=== PATIENT | female | born 1940 | race Caucasian/White ===

== ENCOUNTER → 2016-09-07 | Outpatient (CLI) | payer BC ==
[~2016-09-07] MED LIST: APIX1TAB3 PO; ASCO100061 PO; CETI10TA10 PO; CHOL1000 PO; CHOL1CHW10 PO; CYAN100020 PO; GLUCTAB7 PO; MELA1TAB5 PO; MELA3TAB12 PO; MELA3TAB7 PO; PSYL55.43 PO; TPRSR/100 PO; TZCSR120 PO; WARF2.5T8 PO; ZNT/150 PO; ZNTT/150 PO
--- NOTE | 2016-09-10 12:41 | MAMMOGRAPHY REPORT ---
UNILATERAL LEFT DIGITAL SCREENING MAMMOGRAM TOMOSYNTHESIS WITH CAD: 09/07/2016 TECHNIQUE: Breast tomosynthesis in addition to standard 2D mammography was performed. Current study was also evaluated with a Computer Aided Detection (CAD) system. Left CC and MLO 2-D and tomosynth esis images were obtained. COMPARISON: Comparison is made to exams dated: 09/06/2015 mammogram, 08/08/2012 mammogram, 08/02/2011 ma mmogram, 07/12/2010 mammogram, and 07/11/2009 mammogram - [facility]. BREAST COMPOSITION: The tissue of the left breast is heterogeneously dense, which may obscure small masses. FINDINGS: There is an oval circumscribed 6 mm mass seen within the left breast middle depth on the cc view along the posterior nipple line, not clearly evident on the MLO view. This was not clearly seen on prior exams, therefore, recommend spot compression tomosynthesis views and possible breast u ltrasound for further evaluation. The remainder of the left breast is stable compared to prior exams, without suspicious masses, calci fications, or areas of architectural distortion noted. Left breast postsurgical changes and scatter ed benign-appearing calcifications are not significantly changed. IMPRESSION: ACR BI-RADS CATEGORY 0: INCOMPLETE EVALUATION: NEED ADDITIONAL IMAGING EVALUATION Circumscribed left breast mass, for which additional imaging evaluation is recommended. The patient will be called to schedule an appointment. Approximately 10% of breast cancers are not detected with mammography. A negative mammographic repor t should not delay biopsy if a clinically suggestive mass is present. Lindsay Street M.D. ah/:09/08/2016 14:52:48 Biofuels Product Development Manager: Kristi CARROLL(Yessi)(M), [facility] letter sent: Addl Imaging 0 BI-RADS Code: ACR BI-RADS Category 0: Incomplete Evaluation: Need Additional Imaging Evaluation
== END | disposition home or self-care (01) ==
LOC: C.MAMM 11:26
PROVIDERS: ATTEND Family Medicine
DX: Z12.31 Encounter for screening mammogram for malignant neoplasm of breast (principal); N63 Unspecified lump in breast; Z90.11 Acquired absence of right breast and nipple

== ENCOUNTER → 2016-09-24 | Outpatient (CLI) | payer BC ==
--- NOTE | 2016-09-24 14:37 | MAMMOGRAPHY REPORT ---
UNILATERAL LEFT DIGITAL DIAGNOSTIC MAMMOGRAM TOMOSYNTHESIS AND TARGETED LEFT ULTRASOUND: 09/24/2016 CLINICAL HISTORY: 76-year-old woman with a personal history of right breast cancer status post maste ctomy, call back from screening mammography for a newly visualized 6.5 mm oval mass in the anterior left breast, best seen on the CC view. 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 TECHNIQUE: Spot compression left CC and MLO tomosynthesis images and reconstructed C-view were obta ined. COMPARISON: Comparison is made to exams dated: 09/07/2016 mammogram, 09/06/2015 mammogram, 07/31/2012 ma mmogram, 08/13/2012 ultrasound biopsy, 08/08/2012 mammogram - [facility], and 2007. BREAST COMPOSITION: The tissue of the left breast is heterogeneously dense, which may obscure small masses. FINDINGS: The additional spot compression tomosynthesis images demonstrate persistence of a 6.5 mm oval circumscribed mass in the 12:00 anterior left breast. No associated architectural distortion o r clustered microcalcification. Further evaluation with ultrasound was performed. There are scatte red benign-appearing coarse calcifications, stable microcalcification and vascular calcification thr oughout the visualized left breast. Real-time high resolution ultrasound was performed in the 11:00 through 2:00 axes of the left breast . In the 11:00 axis, 2 cm from the nipple, there is a lobulated anechoic simple cyst measuring 5.6 x 3.9 x 5.4 mm. This is thought to correlate with the circumscribed mammographic mass and is benign . However, incidentally seen in the 12:00 left breast, 1 cm from the nipple is a slightly hypoechoi c microlobulated solid appearing mass measuring 3.8 x 3.8 x 2.6 mm. This is indeterminate. Another lobulated hypoechoic solid-appearing mass is identified in the 2:00 left breast, 3 cm from the nipp le, measuring 4.1 x 3.3 x 3.6 mm. Although these masses in the 12:00 and 2:00 left breast are incid entally seen they could represent papillomas. Definitive characterization with tissue sampling is n eeded, particularly given the personal history of right breast cancer. IMPRESSION: ACR BI-RADS CATEGORY 4B: INTERMEDIATE SUSPICION FOR MALIGNANCY, TARGETED ULTRASOUND ACR BI-RADS CATEGORY 4B: INTERMEDIATE SUSPICION FOR MALIGNANCY 1. The circumscribed 6 mm oval mass in the 12:00 left breast correlates with a benign anechoic simp le cyst on ultrasound. 2. However, 2 other solid-appearing subcentimeter masses were incidentally seen in the left 12:00 and 2:00 axis on ultrasound that are indeterminate. Definitive characterizat ion with ultrasound guided core needle biopsy is recommended. These results and recommendations were discussed with the patient at the time of the exam. She is o n anticoagulation given her cardiac history and I recommended she remain on anticoagulation given th e low risk of bleeding during this procedure. The patient tentatively scheduled the biopsy prior to leaving our department. Approximately 10% of breast cancers are not detected with mammography. A negative mammographic repor t should not delay biopsy if a clinically suggestive mass is present. Barbara Bonilla M.D. ay/:09/24/2016 12:34:56 Lead Atg Developer: Kristi Constantino RT(R)(M), [facility] letter sent: Abnormal 4/5 BI-RADS Code: ACR BI-RADS Category 4B: Intermediate Suspicion For Malignancy Ultrasound BI-RADS: AC R BI-RADS Category 4B: Intermediate Suspicion For Malignancy
== END | disposition home or self-care (01) ==
LOC: C.MAMM 09:57
PROVIDERS: ATTEND Family Medicine
DX: N63 Unspecified lump in breast (principal); N60.02 Solitary cyst of left breast

== ENCOUNTER → 2016-10-24 | Outpatient (CLI) | payer BC ==
--- NOTE | 2016-10-24 14:36 | Discharge Instructions ---
Discharge Instructions Procedure Procedure Date: Oct 24, 2016. Reason for visit: Left 2 Masses. Discharge Discharge Date: Oct 24, 2016. Discharge Diagnosis: post left breast ultrasound guided core biopsy x 2 Medications Restart Stopped Medication(s): Continue current anticoagulation regimen Instructions Activity Recommendations: Additional Limitations (see below) Return to School/Work: no limitations Recommended Home Diet: No Limitations Provider Instructions: ACTIVITY RECOMMENDATIONS: * No lifting, pushing, pulling or exercising the affected side for three days. RETURN TO SCHOOL/WORK: * You may return to work/school after the procedure, but do not perform any strenuous activities for 24 to 48 hours. MEDICATIONS: * Tylenol (two 325 mg) every four to six hours if needed for mild pain (if not allergic to Tylenol). DIET: * Resume previous diet. SPECIAL CARE INSTRUCTIONS: * Keep biopsy site dry for 24 hours. May shower after 24 hours, but do not soak (bathe) incision. * May remove Tegaderm (plastic patch) tomorrow AFTER showering. * Leave the steri-strips on for one week. Allow the steri-strips to fall off by themselves. If not off after one week, you may remove them. You may place a Bandaid crosswise over the strips, if desired. * Apply ice 10 minutes on and 10 minutes off as needed. * Wear a bra at bedtime to sleep more comfortably for 2-3 days. * Your referring physician should have the results after approximately 5 to 7 business days. * Call for unusual bleeding, fever, drainage, etc or if you have any questions call [phone] during normal business hours or after hours call Dr Bonilla, . FOLLOW UP VISIT: Follow-up with Referring Physician as scheduled. Allergies Coded Allergies: Cephalexin (Verified Allergy, Severe, DIF BREATHING, 05/05/15) Ciprofloxacin (Verified Allergy, Unknown, UNKNOWN, 05/05/15) Lactose Intolerance (Verified Allergy, Unknown, unknown, 05/05/15) Heparin (Verified Adverse Reaction, Intermediate, Decreased WBC count, 05/05/15) CI Pigment Blue 63 (Verified Adverse Reaction, Unknown, TACHYCARDIA, ) Dextromethorphan (Unverified Adverse Reaction, Unknown, GI SYMPTOMS, 06/13) unknown Duloxetine (Verified Adverse Reaction, Unknown, TACHYCARDIA, 05/05/15) Famotidine (Unverified Adverse Reaction, Unknown, GI SYMPTOMS, 06/13/15) unknown Guaifenesin (Unverified Adverse Reaction, Unknown, GI SYMPTOMS, 06/13/15) unknown Pantoprazole (Unverified Adverse Reaction, Unknown, GI SYMPTOMS, 06/13/15) unknown Ranitidine (Unverified Adverse Reaction, Unknown, GI SYMPTOMS, 06/13/15) unknown Yellow Dye (Unverified Adverse Reaction, Unknown, GI SYMPTOMS, 06/13/15) unknown Jess Perez Recommendations: Call your doctor if: * Temperature above 101 degrees * Pain not relieved by pain medicine ordered * There is increased drainage or redness from any incision * You have any unanswered questions or concerns. Your Doctors Instructions noted above were prepared by provider Barbara Bonilla. Patient Signature Section: Patient Instructions Signature Page Fallon Negro Patient (or Guardian) Signature/Date: I have read and understand the instructions given to me by my caregivers. Caregiver/RN/Doctor Signature/Date: The above-named patient and/or guardian has received patient instructions on this date. + Original Patient Signature Page (only) stays with chart. Please make copy for patient.
--- NOTE | 2016-10-24 15:55 | MAMMOGRAPHY REPORT ---
THIS REPORT HAS BEEN AMENDED. MULTIPLE ULTRASOUND GUIDED BIOPSIES LEFT BREAST: 10/24/2016 CLINICAL HISTORY: Indeterminate solid appearing masses in the 12:00 and 2:00 axes of the left breast . Patient presents for ultrasound guided core needle biopsy 2. COMPARISON: Comparison is made to exams dated: 09/24/2016 mammogram, 09/07/2016 mammogram, 09/06/2015 m ammogram, 08/13/2012 ultrasound biopsy, 08/08/2012 ultrasound, and 08/02/2011 mammogram - [facility]. PATIENT CONSENT: The procedure, risks and benefits were discussed with the patient and informed writ ten consent was obtained. Specific risks to this procedure include: bleeding, infection, puncture of adjacent structure, nontarget biopsy, sampling error, metal allergy and medication reaction. PROCEDURE DESCRIPTION: A time out was performed and the left breast was agreed as the site of both b iopsies. The skin was prepped and draped in the usual sterile fashion. First the solid appearing m ass in the 2:00 left breast was identified and targeted for biopsy. Subcutaneous and intraparenchyma l 1% buffered lidocaine without epinephrine was administered as local anesthesia. A skin incision wa s made. Through the incision, 3 samples were taken with a 14 gauge Achieve biopsy device. A ribbon shaped metallic marker was placed at the biopsy site. Hemostasis was achieved after manual compressi on. The patient tolerated the procedure well and there was no immediate complication. Then the solid-appearing, possible intraductal mass in the 12:00 left breast was identified and targ eted for biopsy. Additional 1% buffered lidocaine without epinephrine was administered as local ane sthesia. A second skin incision was made. Through the incision, 3 samples were taken with a 14-gau Valmarc achieve biopsy device. A wing-shaped metallic biopsy marker was placed at this site. Hemostasis was achieved after manual compression. The patient tolerated the procedure well and there was no i mmediate application. All the samples were sent to the pathology department in appropriately labeled containers. Postprocedure left CC and ML 2-D digital and tomosynthesis images were obtained. There are 2 new me tallic BX markers and no significant hematoma in the upper outer quadrant of the left breast, at the site of the biopsied hypoechoic solid-appearing mass is seen on ultrasound. Because these masses w ere noted incidentally found on ultrasound, and differ in location from the original mass in which t he patient was called back from screening mammography, pending benign pathology results, a short int erval follow-up diagnostic left mammogram including tomosynthesis images is recommended to ensure st ability in 6 months. IMPRESSION: ULTRASOUND GUIDED BIOPSY Status post ultrasound-guided core needle biopsy 2 in the 12:00 and 2:00 axes of the left breast. Pending benign pathology results, follow-up diagnostic left mammograms and repeat targeted ultrasoun d is recommended to ensure stability in 6 months. The patient will receive notification of the biopsy results from her referring physician. Barbara Bonilla M.D. ay/:10/24/2016 14:50:17 Parachute Inspector: Katrin VELOZ)(Bran), [facility] AMENDMENT: 11/01/2016 Barbara Bonilla M.D. Pathology results from the ultrasound-guided core needle biopsy of an indeterminate solid mass in th e 2:00 left breast yielded a papillary neoplasm. Cytologic atypia is not seen. Ultrasound guided core biopsy of an indeterminate solid mass in the 12:00 left breast yielded fibroadenomatoid change, fibrocystic change and adenosis. No tumor seen. The pathology results in both the 2:00 and 12:00 axes of the left breast are concordant with the imaging appearance. It is controversial as to wheth er all papillomas without atypia need surgical excision or can be closely followed with imaging. Th erefore, consider surgical consultation for possible excision versus short interval follow-up. A short interval follow-up has already been recommended given that neither of the metallic biopsy ma rkers correlate with the partially circumscribed and obscured mass originally seen on the 09/07/2016 mammogram.
--- NOTE | 2016-10-25 13:33 | MAMMOGRAPHY REPORT ---
MULTIPLE ULTRASOUND GUIDED BIOPSIES LEFT BREAST: 10/24/2016 CLINICAL HISTORY: Indeterminate solid appearing masses in the 12:00 and 2:00 axes of the left breast . Patient presented for ultrasound-guided core needle biopsy 2. COMPARISON: Comparison is made to exams dated: 09/24/2016 ultrasound, 09/24/2016 mammogram, 09/07/2016 mammogram, and 09/06/2015 mammogram - [facility]. PATIENT CONSENT: The procedure, risks and benefits were discussed with the patient and informed writ ten consent was obtained. Specific risks to this procedure include: bleeding, infection, puncture of adjacent structure, nontarget biopsy, sampling error and medication reaction. PROCEDURE DESCRIPTION: A time out was performed and the left breast was agreed as the site of biopsy . The skin was prepped and draped in the usual sterile fashion. First the solid appearing mass in t he 2:00 left breast was identified and targeted for biopsy. Subcutaneous and intraparenchymal 1% bu ffered lidocaine was administered as local anesthesia. A skin incision was made. Through the incisi on, 3 samples were taken with a 14 gauge Achieve biopsy device. A ribbon shaped metallic marker was placed at the biopsy site. Hemostasis was achieved after manual compression. The patient tolerated t he procedure well and there was no immediate complication. Then the isoechoic solid-appearing mass in the 12:00 left breast was identified and targeted for bio psy. Additional 1% buffered lidocaine without epinephrine was administered as local anesthesia. A s kin incision was made. Through the incision, 3 samples were taken with a 14 gauge Achieve biopsy de vice. A wing-shaped metallic marker was placed at the biopsy site. Hemostasis was achieved after man ual compression. The patient tolerated the procedure well and there was no immediate complication. All of the samples were sent to the pathology department in appropriately labeled containers. Postprocedure left CC and ML 2-D digital and tomosynthesis images were obtained. 2 new metallic bio psy markers are identified in the upper outer quadrant of the left breast. No significant post biop sy hematoma is seen. Although the biopsied masses were incidentally seen on ultrasound, pending amina ign pathology results would recommend follow-up diagnostic left mammograms and possible repeat ultra sound to ensure stability in 6 months. IMPRESSION: ULTRASOUND GUIDED BIOPSY Status post ultrasound guided core needle biopsy in the 12:00 and 2:00 axes of the left breast, with biopsy marker placed at each site. Pending benign pathology results, recommend follow-up diagnostic left mammograms including tomosynth esis images and possible repeat ultrasound to ensure stability in 6 months. The patient will receive notification of the biopsy results from her referring physician. Barbara Bonilla M.D. ay/:10/24/2016 17:38:04 Linux Vmware Administrator: Katrin VELOZ)(Bran), [facility]
--- NOTE | 2016-10-25 13:36 | MAMMOGRAPHY REPORT ---
UNILATERAL LEFT DIGITAL DIAGNOSTIC MAMMOGRAM TOMOSYNTHESIS: 10/24/2016 CLINICAL HISTORY: 76-year-old woman with a remote history of right breast cancer status post mastect sara presents for ultrasound-guided core biopsy of 2 indeterminate solid appearing masses in the left breast. Please refer to the report from left breast ultrasound guided core needle biopsy performed at the [facility] time for full detail. IMPRESSION: POST PROCEDURE IMAGING FOR MARKER PLACEMENT Please refer to the report from left breast ultrasound guided core needle biopsy performed at the [facility] time for full detail. Approximately 10% of breast cancers are not detected with mammography. A negative mammographic repor t should not delay biopsy if a clinically suggestive mass is present. Barbara Bonilla M.D. ay/:10/24/2016 17:34:07 Supervisor Rough End: Katrin VELOZ)(M), [facility] BI-RADS Code: Post Procedure Imaging For Marker Placement
== END | disposition home or self-care (01) ==
LOC: C.MAMM 13:33
PROVIDERS: ATTEND Family Medicine
DX: N63 Unspecified lump in breast (principal)

== ENCOUNTER → 2017-02-19 | Day surgery (SDC) | payer BC ==
[2017-02-05 08:35] VITALS: Ht 172.7 cm; Wt 64.5 kg
[~2017-02-19] VITALS: Ht 172.7 cm; Wt 64.5 kg
[~2017-02-19] MED LIST changes: +500ML BSS 0.3ML EPI 1:1000PF IRRIG ONE; +ACETAMINOPHEN 325 MG TAB PO PRN; +AMVISC PLUS 0.8ML SYRINGE INT OCU ONE; -ASCO100061 PO; +ATROPINE SULFATE 0.1 MG/ML 5ML SYR IV PRN; +BSS FLUSH ONE; -CHOL1CHW10 PO; -CYAN100020 PO; +EpHEDrine SULFATE INJ 50 MG/ML AMP IV PRN; +EpINEphrine INJ 1MG/ML AMP 1 MG/ML AMP ONE; +GATIFLOXACIN OP SOLN PER DROP CHARGE OPR SCH; +LACTATED RINGER'S 1000ML 500 ML IV SCH; +LIDOCAINE 3.5% OPH GEL PER APPLICATION CHARGE ONE; +LIDOCAINE HCL 1% MPF 2 ML VIAL ONE; -MELA1TAB5 PO; +MIDAZOLAM HCL 1 MG/ML 2ML VIAL ONE; +OCUCOAT 1 ML SOLN IO ONE; +ONDANSETRON INJ 2 MG/ML 2 ML VIAL IV PRN; +POVIDONE-IODINE OP SOLN 30 ML BTL ONE; +PROPARACAINE 0.5% OP SOLN PER DROP CHARGE OPR SCH; -PSYL55.43 PO; +TOBRAMYCIN/DEXAMETHASONE OPH OINT PER APPLN CHARGE ONE; -TPRSR/100 PO; -TZCSR120 PO; -WARF2.5T8 PO; -ZNTT/150 PO
[2017-02-19] MEDS: PHENYLEPHRINE HCL 2.5% OP SOLN PER DROP CHARGE OPR SCH ×2 (07:42→07:47)
[2017-02-19] MEDS: TROPICAMIDE 1% OP SOLN PER DROP CHARGE OPR SCH ×2 (07:42→07:47)
[2017-02-19] MEDS: KETOROLAC 0.5% OP SOLN PER DROP CHARGE OPR SCH ×2 (07:43→07:49)
[2017-02-19] MEDS: CYCLOPENTOLATE HCL 1% OP SOLN PER DROP CHARGE OPR SCH ×2 (07:43→07:48)
[2017-02-19] MEDS: GATIFLOXACIN OP SOLN PER DROP CHARGE OPR SCH ×3 (07:44→08:44)
--- NOTE | 2017-02-19 08:09 | History & Physical Bridge - SC ---
H&P Re-Evaluation Bridge Note: I have examined the patient, reviewed the History & Physical and in the interval since the performance of the History & Physical I have noted the following changes of clinical significance: No changes noted
--- NOTE | 2017-02-19 08:41 | Discharge Instructions-SurgCtr ---
Discharge Instructions Date of Service Feb 19, 2017. Visit Reason for Visit: Right Cataract Discharge Discharge Diagnosis / Problem: cataract Discharge Goals Goal(s): Improve function Activity Recommendations Activity Limitations: per Instructions/Follow-up section Anesthesia . Post Anesthesia Instructions: If you have had General Anesthesia or IV Sedation: * Do not drive today. * Resume driving when surgeon permits. * Do not make important decisions or sign legal documents today. * Call surgeon for: 1. Temperature elevations greater than 101 degrees F. 2. Uncontrollable pain. 3. Excessive bleeding. 4. Persistent nausea and vomiting. 5. Medication intolerance (nausea, vomiting or rash). * For nausea and vomiting use only clear liquids such as: tea, soda, bouillon until nausea subsides, then gradually increase diet as tolerated. * If you have any concerns or questions, call your surgeon's office. If physician is unavailable and it is an emergency, call 911 or go to the nearest emergency room. . Instructions / Follow-Up Instructions / Follow-Up ACTIVITY RECOMMENDATIONS: * No strenuous lifting, jogging or running for 4 days * No swimming or yard work for 1 week. * Limited bending is permitted, such as putting on shoes. RETURN TO SCHOOL/WORK: No work until seen by physician in office. MEDICATIONS: Resume previous medications unless instructed otherwise by your surgeon. This includes eye drops for glaucoma. Zymaxid/Gatifloxacin (trevino cap) - one drop every 2 hours until bedtime Nevanac/Ilevro/Prolensa/Ketorolac (palmer cap) - one drop every 4 hours until bedtime Prednisolone/Durezol (white/pink cap, SHAKE WELL) - one drop every 2 hours until bedtime Starting tomorrow - all 3 drops every 4 hours until seen in the office Optive drops - as needed for discomfort SPECIAL CARE INSTRUCTIONS: * Wear eyeshield when sleeping, for four nights. * You may wear your own glasses or sunglasses while awake. * You may read or watch TV * You may shower and wash your face, but be gentle around the eye and pat dry. * Blurry vision and mild irritation are normal. * Call office if pain is more severe or vision becomes dark at . FOLLOW UP VISIT: Follow-up with Dr Lozano tomorrow. Diet Recommendations Home Diet: resume previous diet Procedures Procedures Performed: Right Cataract Phacoemulsification With Intraocular Lens Implant Pending Studies Studies pending at discharge: no Medical Emergencies . Who to Call and When: Medical Emergencies: If at any time you feel your situation is an emergency, please call 911 immediately. . Non-Emergent Contact Non-Emergency issues call your: Bead Wire Insulator . . "Provider Documentation" section prepared by Emanuel Lozano. .
--- NOTE | 2017-02-19 08:42 | [facility] Operative Report ---
Operative Report Date of Service Feb 19, 2017. Operative Report 1. PREOPERATIVE DIAGNOSIS: Cataract of the right eye. 2. POSTOPERATIVE DIAGNOSIS: Same. 3. PROCEDURE: Phacoemulsification with intraocular lens implantation of the right eye. SURGEON: Dr. Emanuel Lozano. ANESTHESIA: Topical Lidocaine gel, 1% Non- Preserved intracameral Lidocaine, and monitored intravenous sedation. INDICATIONS FOR THE PROCEDURE: The patient is a 77 - year-old female with a history of cataract of the right eye causing significant visual impairment. The details of the proposed procedure were explained to the patient who asked appropriate questions and following discussion of all risks, benefits and alternatives agreed to have the procedure done. 4. OPERATION AND FINDINGS: DESCRIPTION OF PROCEDURE: After informed consent was obtained, the patient was brought to the Operating Room at the [facility]. The patient was placed in a supine position and then the right eye was prepped and draped in the usual sterile fashion for intraocular surgery. A drop of topical Lidocaine gel was placed in the operative eye. A wire lid speculum was then placed in the fornices. A corneal paracentesis was then created temporally. The Non-Preserved Lidocaine was then instilled into the anterior chamber. The anterior chamber was then pressurized with viscoelastic. A 2.0 mm clear corneal incision was then created temporally. A cystotome was inserted into the anterior chamber and used to create a tear in the anterior lens capsule. This capsular tear was then used to create a small flap and the flap was dragged in a counterclockwise direction in order to create a continuous curvilinear capsulorrhexis. Hydrodissection was accomplished with balanced salt solution. Phacoemulsification of the lens nucleus was then performed in a standard [id number] technique. The phaco time was 22 seconds with an average power of 12 %. The remaining cortical material was removed using irrigation aspiration. The capsular bag was then filled with viscoelastic. A Bausch [employer] Lomb MI60L +14.5 diopters lens was then loaded into the injector and injected into the capsular bag. The remaining viscoelastic was removed with the irrigation aspiration handpiece. The wound was hydrated and then checked and found to be watertight. The intraocular pressure was checked and found to be adequate. The wire lid speculum was removed and the patient's face was cleaned and dried. TobraDex ointment was placed in the inferior fornix. The patient was discharged to the Recovery Room having tolerated the procedure well. There were no complications. The patient will be seen tomorrow in the office for follow-up. I attest to the content of the Intraoperative Record and any orders documented therein. Any exceptions are noted below.
[2017-02-19 08:45] VITALS: TEMP 36.6
[2017-02-19 09:11] VITALS: BP 165/89; PULSE 65; O2SAT 99
--- NOTE | 2017-02-19 09:11 | Anesthesia Progress Nt - [facility] ---
Anesthesia Post Op Note Date & Time Feb 19, 2017 at 09:11 Vital Signs Pain Intensity: 0 Vital Signs Past 12 Hours Date Time Temp Pulse Resp B/P (MAP) Pulse Ox O2 Delivery O2 Flow Rate FiO2 02/19/17 08:45 36.6 65 18 150/80 (103) 100 Room Air 02/19/17 07:24 36.6 66 16 166/84 (111) 98 Room Air Notes Mental Status: alert / awake / arousable, participated in evaluation Pt Amnestic to Procedure: Yes Nausea / Vomiting: adequately controlled Pain: adequately controlled Airway Patency, RR, SpO2: stable & adequate BP & HR: stable & adequate Hydration State: stable & adequate Anesthetic Complications: no major complications apparent
== END | disposition home or self-care (01) ==
LOC: X.SURG 07:07
PROVIDERS: ATTEND Ophthalmology
DX: H26.9 Unspecified cataract (principal); I48.91 Unspecified atrial fibrillation; Z95.0 Presence of cardiac pacemaker; Z82.49 Family history of ischemic heart disease and other diseases of the circulatory system; Z80.3 Family history of malignant neoplasm of breast; Z80.42 Family history of malignant neoplasm of prostate; Z80.0 Family history of malignant neoplasm of digestive organs; Z79.01 Long term (current) use of anticoagulants; Z90.710 Acquired absence of both cervix and uterus; Z90.89 Acquired absence of other organs; Z90.49 Acquired absence of other specified parts of digestive tract; I10 Essential (primary) hypertension; M19.90 Unspecified osteoarthritis, unspecified site; Z85.3 Personal history of malignant neoplasm of breast

== ENCOUNTER → 2017-05-21 | Day surgery (SDC) | payer BC ==
[2017-04-26 09:51] VITALS: Ht 172.7 cm; Wt 64.5 kg
[~2017-05-21] VITALS: Ht 172.7 cm; Wt 64.5 kg
[~2017-05-21] MED LIST changes: -500ML BSS 0.3ML EPI 1:1000PF IRRIG ONE; -ACETAMINOPHEN 325 MG TAB PO PRN; -AMVISC PLUS 0.8ML SYRINGE INT OCU ONE; -ATROPINE SULFATE 0.1 MG/ML 5ML SYR IV PRN; -BSS FLUSH ONE; -EpHEDrine SULFATE INJ 50 MG/ML AMP IV PRN; -EpINEphrine INJ 1MG/ML AMP 1 MG/ML AMP ONE; -GATIFLOXACIN OP SOLN PER DROP CHARGE OPR SCH; -LACTATED RINGER'S 1000ML 500 ML IV SCH; -LIDOCAINE 3.5% OPH GEL PER APPLICATION CHARGE ONE; -LIDOCAINE HCL 1% MPF 2 ML VIAL ONE; +MELA1TAB5 PO; -MIDAZOLAM HCL 1 MG/ML 2ML VIAL ONE; -OCUCOAT 1 ML SOLN IO ONE; -ONDANSETRON INJ 2 MG/ML 2 ML VIAL IV PRN; -POVIDONE-IODINE OP SOLN 30 ML BTL ONE; -PROPARACAINE 0.5% OP SOLN PER DROP CHARGE OPR SCH; -TOBRAMYCIN/DEXAMETHASONE OPH OINT PER APPLN CHARGE ONE
== END | disposition home or self-care (01) ==
LOC: EDSTATUS 07:00 → C.PAT 16:00
PROVIDERS: ATTEND Surgery
DX: D24.9 Benign neoplasm of unspecified breast (principal); Z53.9 Procedure and treatment not carried out, unspecified reason

== ENCOUNTER → 2017-10-29 | Day surgery (SDC) | payer BC ==
[2017-10-14 11:52] VITALS: Ht 172.7 cm; Wt 62.7 kg
[~2017-10-29] VITALS: Ht 172.7 cm; Wt 62.7 kg
[~2017-10-29] MED LIST changes: +ATROPINE SULFATE 0.1 MG/ML 5ML SYR IV PRN; +CLINDAMYCIN PHOS 150 MG/ML 2 ML VIAL IV SCH; +EpHEDrine SULFATE INJ 50 MG/ML AMP IV PRN; +FENTANYL CITRATE INJ 50 MCG/1 ML 2 ML VIAL IV PRN; +FENTANYL CITRATE INJ 50 MCG/1 ML 2 ML VIAL ONE; +FLUMAZENIL 0.1 MG/1 ML 10 ML VIAL IV PRN; +HYDR-5688 PO; +HYDROCODONE/ACETAMIN 5/325MG TAB PO PRN; +HYDROmorphone INJ 2 MG/ML SYR/VIAL IV PRN; +LABETALOL HCL IV 5 MG/ML 20ML IV PRN; +LACTATED RINGER'S 1000ML 1,000 ML IV SCH; +LIDOCAINE HCL 1% 20 ML VIAL ONE; +LIDOCAINE HCL 2% 2 ML VIAL (20MG/ML) ONE; +MELA1TAB3 PO; -MELA1TAB5 PO; -MELA3TAB12 PO; -MELA3TAB7 PO; +MEPERIDINE HCL 25 MG/ML CARP IV PRN; +MIDAZOLAM HCL 1 MG/ML 2ML VIAL ONE; +NALOXONE HCL 0.4 MG/1 ML VIAL/CARP IV PRN; +ONDANSETRON INJ 2 MG/ML 2 ML VIAL IV PRN; +PHENYLEPHRINE 100MCG/ML 5ML SYR IV PRN; +PROPOFOL IV EMULSION 10 MG/ML 20 ML VIAL IV ONE; +SODIUM CHLORIDE 0.9% 1000ML 1,000 ML IV SCH; -ZNT/150 PO
--- NOTE | 2017-10-29 11:57 | Discharge Instructions-SurgCtr ---
Discharge Instructions Date of Service Oct 29, 2017. Visit Reason for Visit: Left Breast Papilloma Discharge Discharge Diagnosis / Problem: papilloma Discharge Goals Goal(s): Decrease discomfort, Improve function, Improve disease control Medications Stopped Medications Name(s): Luke winslow 10-26-17 Activity Recommendations Activity Limitations: as noted below Lifting Limitations: gradually increase as tolerated Exercise/Sports Limitations: until after follow-up appointment May Resume Sexual Activity: when tolerated Shower/Bathe: keep incision dry (for 2 days then may shower 4/5) Anesthesia . Post Anesthesia Instructions: If you have had General Anesthesia or IV Sedation: * Do not drive today. * Resume driving when surgeon permits. * Do not make important decisions or sign legal documents today. * Call surgeon for: 1. Temperature elevations greater than 101 degrees F. 2. Uncontrollable pain. 3. Excessive bleeding. 4. Persistent nausea and vomiting. 5. Medication intolerance (nausea, vomiting or rash). * For nausea and vomiting use only clear liquids such as: tea, soda, bouillon until nausea subsides, then gradually increase diet as tolerated. * If you have any concerns or questions, call your surgeon's office. If physician is unavailable and it is an emergency, call 911 or go to the nearest emergency room. . Instructions / Follow-Up Instructions / Follow-Up SPECIAL CARE INSTRUCTIONS: * Cover incisions and change daily for comfort/drainage. * May use ibuprofen for pain as tolerated. * Expect some swelling and bruising. Call your doctor if: * Temperature above 101 degrees * Pain not relieved by pain medicine ordered * There is increased drainage or redness from any incision * You have any unanswered questions or concerns [phone]. FOLLOW UP VISIT: If not already scheduled, please call the office for a follow-up visit. for next week- some suture removal OFFICE PHONE NUMBER: Dr. Chapin Office Diet Recommendations Home Diet: resume previous diet Pending Studies Studies pending at discharge: no Medical Emergencies . Who to Call and When: Medical Emergencies: If at any time you feel your situation is an emergency, please call 911 immediately. . Non-Emergent Contact Non-Emergency issues call your: Primary Care Provider, Surgeon . . "Provider Documentation" section prepared by Blas Chapin. .
--- NOTE | 2017-10-29 13:06 | [facility] Operative Report ---
Operative Report Operative Date Oct 29, 2017. Pre-Operative Diagnosis Left Breast Papilloma Post-Operative Diagnosis same as pre op Procedure(s) Performed Left Breast Papilloma Excision With Needle Localization Surgeon Dr Chapin Damper Fitter Surgeon(s) none Estimated Blood Loss 20ml Findings clip Specimens A) Left Breast Tissue out at 1230 B) Left Inferior Tissue, Blue Dye is New Margin C) Left Superior Tissue, Blue Dye is New Margin Drains None Anesthesia Type MAC Disposition Recovery Room / PACU I attest to the content of the Intraoperative Record and any orders documented therein. Any exceptions are noted below.
[2017-10-29 13:12] VITALS: TEMP 36.9
--- NOTE | 2017-10-29 13:23 | Anesthesia Progress Nt - [facility] ---
Anesthesia Post Op Note Date & Time Oct 29, 2017 at 13:22 Vital Signs Pain Intensity: 0 Vital Signs Past 12 Hours Date Time Temp Pulse Resp B/P (MAP) Pulse Ox O2 Delivery O2 Flow Rate FiO2 10/29/17 13:12 36.9 65 16 156/85 (108) 99 Room Air 10/29/17 09:52 36.5 78 16 154/89 (110) 99 Room Air Notes Mental Status: alert / awake / arousable, participated in evaluation Pt Amnestic to Procedure: Yes Nausea / Vomiting: adequately controlled Pain: adequately controlled Airway Patency, RR, SpO2: stable & adequate BP & HR: stable & adequate Hydration State: stable & adequate Anesthetic Complications: no major complications apparent The patient's pacemaker was placed in VOO by the [employer] rep during the surgery. She was then reprogrammed by the rep in PACU to her normal settings.
[2017-10-29 14:04] VITALS: BP 147/77; PULSE 69; O2SAT 97
--- NOTE | 2017-10-29 14:31 | OPERATIVE REPORT ---
DATE OF OPERATION: 10/29/2017 NAME OF OPERATION: Needle localization, left breast biopsy. PREOPERATIVE DIAGNOSIS: Abnormal mammogram, left breast. POSTOPERATIVE DIAGNOSIS: Same. STAFF SURGEON: Dr. Chapin. ANESTHESIA: 1% plain lidocaine with sedation. DESCRIPTION OF PROCEDURE: The patient was brought in the operating room and placed on the operating table in supine position. After appropriate sedation and also reprogramming of her pacemaker, the left breast was prepped and draped around a needle and the skin and subcutaneous tissue were anesthetized using 1% plain lidocaine. Then, incision made medial to the needle carrying dissection down around the needle. It was somewhat difficult secondary to dense breast tissue and vascularity. Tissue was excised and sent to the breast center. There was some question of need for additional tissue more superficially. Therefore, additional tissue was taken and then this was inferior and superior tissue, which was marked with blue dye on the new margins. Deep tissue was reapproximated using 2-0 plain catgut suture then the skin reapproximated using 5-0 Prolene suture. Dressing applied and patient transferred to recovery room in stable condition. I attest to the content of the Intraoperative Record and any orders documented therein. Any exception s are noted below.
--- NOTE | 2017-10-30 07:55 | MAMMOGRAPHY REPORT ---
THIS REPORT HAS BEEN AMENDED. NEEDLE LOCALIZATION LEFT BREAST: 10/29/2017 CLINICAL HISTORY: 77-year-old woman with a personal history of right breast cancer status post mastec tereso presents for surgical excision of a biopsy-proven papillary neoplasm in the 2:00 left breast. COMPARISON: Comparison is made to exams dated: 10/29/2017 ultrasound, 10/29/2017 mammogram, 10/24/2016 ma mmogram, and 10/24/2016 ultrasound biopsy - [facility]. PATIENT CONSENT: The risks of the procedure were explained to the patient and informed consent was ob tained. The patient denied eating or drinking anything this morning that would preclude anesthesia. She also denied allergy to lidocaine. PROCEDURE DESCRIPTION: Current and prior mammograms, ultrasounds and ultrasound-guided core biopsy im ages were reviewed. The biopsy-proven papilloma is not well seen on ultrasound today therefore mammo gram guided needle localization will be performed. The ribbon-shaped biopsy marker clip is the inten ded target for localization. With the patient in the seated position, the left breast was placed in lateral-medial compression. 1% buffered Lidocaine without epinephrine was administered as local anest hesia. A 3cm Paredes II needle and wire combination was inserted into the breast. Optimal positioning was confirmed and the wire was locked in place, leaving both the needle and wire within the breast, as per surgeon's preference. The entire procedure including approach and needle length were discusse d with the operating surgeon prior to surgery. The patient tolerated the procedure well and there wa s no immediate complication. She was transferred to the surgery center operating room in satisfactor y condition. The specimen radiograph demonstrates the localizing needle and wire, vascular calcification, a small grouping of punctate microcalcifications and the ribbon-shaped biopsy marker clip. The ribbon clip i s located near the superficial aspect of the specimen and this was discussed with the operating surge on during the procedure. He opted to take additional superficial tissue. IMPRESSION: NEEDLE LOCALIZATION Status post preoperative needle and wire localization for a biopsy-proven papillary neoplasm in the 2 :00 left breast. The imaged specimen includes the intended abnormalities. Pending pathology results, recommend follow-up left diagnostic tomosynthesis mammograms and possible ultrasound as well as a breast MRI to ensure stability after surgery in 6 months and also to reevalua te a questionable subtle area of architectural distortion in the lateral breast that could simply rep resent prior postsurgical change. The patient will receive notification of the pathology results from her referring physician. Barbara Bonilla M.D. ay/:10/29/2017 12:49:17 Home Teaching Grades 9 Thru 12 Teacher: Kristi CARROLL (R)(Bran), [facility] AMENDMENT: 11/06/2017 Barbara Bonilla M.D. Pathology results from the image guided surgical excisional biopsy of a papilloma in the lateral left breast yielded a benign intraductal papilloma with fibrocystic changes. Small radial scar. Changes consistent with previous biopsy site. Examined margins free of neoplasm. Benign breast tissue. Ne gative for in situ and invasive carcinoma. The pathology results are concordant with the imaging ariel earance. Given the personal history of breast cancer, left breast surgeries and other possible areas of distortion in the left breast, would recommend a six-month follow-up mammogram and MRI to ensure stability.
--- NOTE | 2017-10-30 07:55 | MAMMOGRAPHY REPORT ---
SPECIMEN LEFT BREAST: 10/29/2017 CLINICAL HISTORY: Biopsy-proven papillary neoplasm in the 2:00 left breast. Patient presents for pre operative needle and wire localization prior to excisional biopsy. Please refer to the report from left breast needle localization with imaging performed at the same ti me for full detail. IMPRESSION: SPECIMEN Please refer to the report from left breast needle localization with imaging performed at the same ti me for full detail. Barbara Bonilla M.D. ay/:10/29/2017 11:54:50 Senior Architect: Kristi CARROLL(Yessi)(M), [facility]
--- NOTE | 2017-10-30 07:58 | MAMMOGRAPHY REPORT ---
UNILATERAL LEFT DIGITAL DIAGNOSTIC MAMMOGRAM TOMOSYNTHESIS WITH CAD AND TARGETED LEFT ULTRASOUND: 10/29 CLINICAL HISTORY: 77-year-old woman with a personal history of right breast cancer status post mastec tereso, who underwent 2 left breast biopsies on 10/24/2016. The mass in the 2:00 left breast yielded a papillary neoplasm and surgical excision was recommended. She presents at time of surgical excision but given that it has been greater than a year since her previous mammograms, diagnostic left mammogr aphy was performed prior to needle localization to exclude the possibility of any other new suspiciou s findings. TECHNIQUE: Left breast tomosynthesis in addition to standard 2D mammography was performed. Current st udy was also evaluated with a Computer Aided Detection (CAD) system. Spot compression tomosynthesis left CC and MLO views were also obtained. COMPARISON: Comparison is made to exams dated: 10/24/2016 mammogram, 09/24/2016 ultrasound, 09/24/2016 mammogram, 09/07/2016 mammogram, 09/06/2015 mammogram, and 07/31/2012 mammogram - [facility]. BREAST COMPOSITION: The tissue of the left breast is heterogeneously dense, which may obscure small masses. FINDINGS: There is a lobulated and circumscribed 5.4 mm mass in the 12:00 middle one third of the lef t breast. This was thought to correlate with a cyst identified on prior left breast ultrasound but r epeat evaluation with ultrasound was performed. No obvious associated architectural distortion or ca lcification. There are 2 stable metallic biopsy marker clips in the lateral left breast, denoting th e biopsy-proven fibroadenomatoid nodule and biopsy-proven papillary neoplasm, which is denoted by a r ibbon-shaped biopsy marker clip. No obvious new masses or asymmetries are seen near the biopsy marke r clips. There is a subtle questionable area of architectural distortion in the lateral, middle one third of the left breast on CC tomosynthesis slice 24/49, which is located near a skin surgical scar based on the linear scar marker. Nevertheless, further evaluation with ultrasound was performed. Th ere is also expected architectural distortion in the medial anterior left breast, at the site of prio r excision. Targeted ultrasound was performed to the left breast with particular attention to the superior aspect of the breast. In the 11:00 axis, 2 cm from the nipple, there is a lobulated anechoic cyst with pos terior acoustic enhancement, measuring 6.3 x 4.2 x 3.9 mm, correlating with the circumscribed mammogr aphic mass. This is benign. The previously biopsied masses in the 12:00 and 2:00 axes of the left b reast are not definitely seen. There is a hypoechoic lesion with possible associated biopsy marker c lip in the approximate 1:00 left breast, 1 cm from the nipple but it is unclear if this may correspon d with the previously biopsied mass labeled in the 2:00 axis. Therefore, mammogram guided needle loc alization will be performed. Additionally, there is a very subtle possible texture difference in the tissue at the 12:00 left breast, 2 cm from the nipple but no definite architectural distortion is ap preciated in real-time scanning. A six-month follow-up diagnostic tomosynthesis mammogram and repeat targeted ultrasound is recommended to ensure stability in 6 months, and to establish new baseline af ter surgical excision. IMPRESSION: ACR BI-RADS CATEGORY 4: SUSPICIOUS, TARGETED ULTRASOUND ACR BI-RADS CATEGORY 4: SUSPICIO US 1. A visible circumscribed 5.4 mm mass in the middle one third of the left breast along the posterio r nipple line on the cc view is thought to correspond with a benign cyst seen in the 11:00 left breas t, 2 cm from the nipple on ultrasound. 2. The previously biopsied masses in the 12:00 and 2:00 axes of the left breast are less conspicuous on the current ultrasound and therefore mammogram guided needle localization will be performed to en sure excision of the ribbon-shaped biopsy marker clip which denotes the biopsy-proven papillary neopl asm. 3. There is a questionable area of architectural distortion in the lateral, middle one third of the left breast on the CC tomosynthesis images, which likely represents postsurgical scarring, given nume yulia linear scar markers overlying the left breast from prior excisions. No definite suspicious sono graphic correlate is seen. Nevertheless, given the personal history of right breast cancer, heteroge neously dense left breast parenchyma and difficult mammographic pattern, would recommend additional s urveillance with breast MRI, likely at the six-month follow-up huan after the current surgery to excl ude the possibility of any other subtle or mammographically occult findings. These results and recommendations were discussed with the patient at the time of the exam; they were also discussed with her breast surgeon, Dr. Chapin. Mammogram guided needle localization was also perf ormed during the same appointment and please refer to separate reports for full detail. Approximately 10% of breast cancers are not detected with mammography. A negative mammographic report should not delay biopsy if a clinically suggestive mass is present. Barbara Bonilla M.D. ay/:10/29/2017 12:03:47 Pharmacovigilance Safety Expert: Katrin VELOZ)(Bran), [facility] letter sent: Abnormal 4/5 BI-RADS Code: ACR BI-RADS Category 4: Suspicious Ultrasound BI-RADS: ACR BI-RADS Category 4: Suspici ous
== END | disposition home or self-care (01) ==
LOC: X.SURG 09:30
PROVIDERS: ATTEND Surgery
DX: D24.2 Benign neoplasm of left breast (principal); I10 Essential (primary) hypertension; I48.0 Paroxysmal atrial fibrillation; K21.9 Gastro-esophageal reflux disease without esophagitis; M79.7 Fibromyalgia; Z79.01 Long term (current) use of anticoagulants; Z95.0 Presence of cardiac pacemaker; Z85.3 Personal history of malignant neoplasm of breast

== ENCOUNTER 2023-03-10 21:55 | Observation (INO) ==
[2023-03-10 23:41] LABS: Appearance Urine Clear (Clear); Bilirubin Urine Negative (Negative); Blood Urine Negative (Negative); Color Urine Yellow; Glucose Urine UA Negative (Negative); Ketones Urine 1+ (Negative); Leukocyte Esterase Urine Negative (Negative); Nitrite Urine Negative (Negative); Protein Urine Negative (Negative); Specific Gravity Urine 1.012 (1.000-1.030); Urobilinogen Urine Negative (Negative); pH Urine 7.5 (4.5-7.5)
[2023-03-10 23:43] LABS: Basophils # (auto) 0.01 K/uL (0-0.2); Basophils % (auto) 0.2 %; Hematocrit (blood only) 42.4 % (37.0-47.0); Hemoglobin 15.4 g/dl (12.0-16.0); Immature Granulocytes # (auto) 0.01 K/uL (0.01-0.20); Immature Granulocytes % (auto) 0.2 %; Lymphocytes # (auto) 0.77 K/uL (1.2-3.4); Lymphocytes % (auto) 14.8 %; Mean Corpuscular Hgb Conc 36.3 g/dL (32.0-36.0); Mean Corpuscular Volume 93.6 fL (80.0-100.0); Mean Platelet Volume 10.7 fL (9.4-12.4); Monocytes # (auto) 0.35 K/uL (0.11-0.59); Monocytes % (auto) 6.7 %; Neutrophils # (auto) 4.05 K/uL (1.40-6.50); Neutrophils % (auto) 78.1 %; Platelet Count 127 K/uL (130-400); RDW Coefficient of Variation 13.9 % (11.5-14.5); RDW Standard Deviation 47.7 fL (36.4-46.3); Red Blood Count 4.53 M/uL (4.20-5.40); White Blood Count 5.19 K/ul (4.8-10.8)
[2023-03-10 23:54] LABS: Albumin Globulin Ratio 1.7 (0.9-2); Albumin Level 4.5 gm/dl (3.4-5.0); BUN Creatinine Ratio 23.7 (10-20); Bilirubin,Total 2.2 mg/dl (0.2-1.0); Calcium 9.5 mg/dl (8.6-10.3); Creatinine Clr Calc Pharmacy 51.6 ml/min; Est GFR (African American) 83.5 ml/min; Globulin 2.6 gm/dl (2.5-4.0); Magnesium 2.1 mg/dl (1.7-2.4); Potassium 3.3 mmol/L (3.5-5.1); Total Protein 7.1 gm/dl (6.0-8.3)
[2023-03-11] LABS: Troponin I High Sensitivity 4.2 pg/ml (0-14)
[2023-03-11] MEDS ORDERED: IOVERSOL 350 MG 125mL Prefilled Syringe IV ONE
[2023-03-11 00:06] LABS: INR 1.1 (0.9-1.1); Partial Thromboplastin Time 28.2 Seconds (21.0-31.0); Prothrombin Time 11.6 Seconds (9.0-12.0)
[2023-03-11 00:20] LABS: Influenza A virus by PCR Negative (Neg); Influenza B virus by PCR Negative (Neg); RSV by PCR Negative (Neg); SARS CoV2 RNA(COVID-19) Ceph NEGATIVE (Negative)
--- NOTE | 2023-03-11 00:39 | CT Scan Report ---
Exam(s): CT HEAD Without Contrast EXAM: CT Head Without Intravenous Contrast CLINICAL HISTORY: Reason for exam: neuro deficit, acute stroke suspected. TECHNIQUE: Axial computed tomography images of the head/brain without intravenous contrast. Automated exposure control was utilized for the study. A dose lowering technique was utilized adhering to the principles of ALARA. COMPARISON: 09/27/2022 FINDINGS: Brain: Moderate periventricular white matter changes, likely related to microangiopathy. No hemorrhage. Ventricles: Unremarkable. No ventriculomegaly. Bones/joints: Unremarkable. No acute fracture. Soft tissues: Unremarkable. Sinuses: Unremarkable as visualized. No acute sinusitis. Mastoid air cells: Unremarkable as visualized. No mastoid effusion. IMPRESSION: Moderate periventricular white matter changes, likely related to microangiopathy. Communications: Call Doctor Stroke Electronically signed by: Colin Charles M.D. 03/11/23 00:38 AM
--- NOTE | 2023-03-11 00:44 | CT Scan Report ---
Exam(s): CTA HEAD With Contrast IV Amt: 114 ml optiray 350 EXAM: CT Angiography Head With Intravenous Contrast CLINICAL HISTORY: Reason for exam: neuro deficit, acute stroke suspected. TECHNIQUE: Axial computed tomographic angiography images of the head with intravenous contrast. Automated exposure control was utilized for the study. A dose lowering technique was utilized adhering to the principles of ALARA. MIP reconstructed images were created and reviewed. CONTRAST: Patient received 114 ml optiray 350 of IV contrast COMPARISON: No relevant prior studies available. FINDINGS: Right internal carotid artery: No acute findings. Intracranial segment is patent with no significant stenosis. No aneurysm. Right anterior cerebral artery: Unremarkable. No occlusion or significant stenosis. No aneurysm. Right middle cerebral artery: Unremarkable. No occlusion or significant stenosis. No aneurysm. Right posterior cerebral artery: Moderate atherosclerotic disease of bilateral proximal posterior cerebral arteries. No occlusion or significant stenosis. No aneurysm. Right vertebral artery: Unremarkable as visualized. Left internal carotid artery: No acute findings. Intracranial segment is patent with no significant stenosis. No aneurysm. Left anterior cerebral artery: Unremarkable. No occlusion or significant stenosis. No aneurysm. Left middle cerebral artery: Unremarkable. No occlusion or significant stenosis. No aneurysm. Left posterior cerebral artery: Moderate atherosclerotic disease of bilateral proximal posterior cerebral arteries. Left vertebral artery: Unremarkable as visualized. Basilar artery: Unremarkable. No occlusion or significant stenosis. No aneurysm. IMPRESSION: 1. No large vessel intracranial occlusion. 2. No intracranial aneurysm.. Communications: Call Doctor Stroke Electronically signed by: Colin Charles M.D. 03/11/23 00:44 AM
--- NOTE | 2023-03-11 00:51 | CT Scan Report ---
Exam(s): CTA NECK With Contrast IV Amt: 114 ml optiray 350 EXAM: CT Angiography Neck With Intravenous Contrast CLINICAL HISTORY: Reason for exam: neuro deficit, acute stroke suspected. TECHNIQUE: Routine carotid CT angiography protocol was performed with intravenous contrast. NASCET criteria using the distal ICAs for comparison were used for evaluation of stenoses. Automated exposure control was utilized for the study. A dose lowering technique was utilized adhering to the principles of ALARA. MIP reconstructed images were created and reviewed. CONTRAST: Patient received 114 ml optiray 350 of IV contrast COMPARISON: None. FINDINGS: VASCULATURE: Right common carotid artery: Unremarkable. No occlusion or significant stenosis. No dissection. Right internal carotid artery: Questionable linear defect within the proximal right internal carotid artery. Question if this could represent a nonflow limiting dissection. This finding should be confirmed with a carotid ultrasound. Mild calcified plaque within the right carotid bulb without hemodynamically significant stenosis. Right external carotid artery: Unremarkable. No occlusion. Right vertebral artery: Unremarkable. No occlusion or significant stenosis. No dissection. Left common carotid artery: Unremarkable. No occlusion or significant stenosis. No dissection. Left internal carotid artery: Unremarkable. Extracranial segment is patent with no occlusion or significant stenosis. No dissection. Left external carotid artery: Unremarkable. No occlusion. Left vertebral artery: Unremarkable. No occlusion or significant stenosis. No dissection. NECK: Bones/joints: Unremarkable. Soft tissues: Unremarkable. Lung apices: Clear. CAROTID STENOSIS REFERENCE USING NASCET CRITERIA: % ICA stenosis = (1 - narrowest ICA diameter/diameter of distal cervical ICA) x 100. Mild - <50% stenosis. Moderate - 50-69% stenosis. Severe - 70-94% stenosis. Near occlusion - 95-99% stenosis. Occluded - 100% stenosis. IMPRESSION: Questionable linear defect within the proximal right internal carotid artery. Question if this could represent a nonflow limiting dissection. This finding should be confirmed with a carotid ultrasound. No hemodynamically significant carotid stenosis. Patent bilateral vertebral arteries without evidence of occlusion or dissection. Communications: Call Doctor Stroke Electronically signed by: Colin Charles M.D. 03/11/23 00:51 AM
--- NOTE | 2023-03-11 01:09 | Emergency Department Note ---
Impression & Plan Acute alteration in mental status, Hyponatremia, Chronic anticoagulation ED Provider Note CHIEF COMPLAINT: Memory issues, confusion HISTORY OF PRESENT ILLNESS: This 83-year-old female patient with past medical history of hypertension, atrial fibrillation, pacemaker, UTI presents to the emergency department with complaints of memory difficulties. Patient apparently called her daughter today stating that she was having confusion. She does live at home with her grandson and could not remember cooking dinner for him. She denies any recent falls, headache or chest pain. Patient is anticoagulated with Eliquis secondary to atrial fibrillation. Additional history was taken from the patient's daughter at the bedside. REVIEW OF SYSTEMS: A review of systems was performed with positives and pertinent negatives listed in the history of present illness. 10 systems were reviewed and are otherwise negative. ALLERGIES: see below MEDICATIONS: see below PMH: see below SOCIAL HISTORY: see below DDx: Intracranial hemorrhage, intracranial mass, stroke, dementia, UTI, electrolyte abnormality, among others. PHYSICAL EXAM: Vital signs reviewed. General: Well-appearing 83-year-old female, in no significant distress. HEENT: No scleral icterus, PERRLA, neck supple. Moist mucous membranes. Cardiovascular: Regular rate and rhythm, no extra sounds. Pulmonary: Clear to auscultation bilaterally, normal work of breathing. Abdomen: Soft, nontender, nondistended, positive bowel sounds. Musculoskeletal: Atraumatic, no peripheral edema. Neurologic: Patient awake alert, pleasantly confused. Unable to state the month or year. Equal strength in all 4 extremities, cranial nerves II through XII are grossly intact. Intact [id number] and negative pronator drift. Skin: Warm, dry, no rash EMERGENCY DEPARTMENT COURSE/MDM: This patient was evaluated and appeared to be in no significant distress. IV access was obtained and laboratory work was drawn. The patient was placed on rn cardiac rehab noted to be in ventricularly paced rhythm. Patient's laboratory work was reviewed and is notable for a hyponatremia at 128. UA is negative for infection. Patient was hydrated with n ormal saline solution. EKG reveals a ventricularly paced rhythm. Head CT was performed and is negative for acute intracranial abnormality. CT angiogram of the head and neck was performed and per the radiologist there is a concern for artifact versus dissection of the right internal carotid artery. I did discuss the findings with the hospitalist service. The patient is suffering from acute memory changes without clear etiology. Given the findings of the right internal carotid abnormality, he has recommended follow-up carotid ultrasound. Patient will be evaluated by the hospitalist for admission and further management. She and her daughter are aware of the plan and agree. MONITORING: An order for cardiac monitoring was placed and the patient is noted to be ventricularly paced rhythm at 65 bpm. RADIOLOGY: Head CT to my review reveals no evidence of acute intracranial abnormality. Otherwise defer to radiology's over read. EKG: To my interpretation reveals a ventricular paced rhythm at [address] segment changes, no PVC, no PAC. QTc is 503. No significant change from previous dated September 27, 2022. DISPOSITION: Home Past Med/Surg History Medical History Atrial fibrillation Cluster headache Hypertension Pacemaker Surgical History H/O prior ablation treatment History of hysterectomy History of mastectomy History of parathyroidectomy Hx of cholecystectomy Status post ablation of atrial fibrillation Family History Daughter Asthma Son Hearing loss Mother Lung disease Father Heart disease Other Hypertension Social History Smoking Status: Unknown if ever smoked Second Hand Exposure: No; Do You Dip or Chew Tobacco: No; Hx Alcohol Use: No Hx Substance Use: No Preferred Language: Italian Communication Ability: Effective Adapted Physical Education Teacher Required: No Beliefs That Will Affect Care: None Current Living Situation: Alone Current Living Situation Comment: she usually lives alone but her grandson is currently living with her Feels Safe at Home: Yes Assistive Devices: Denture - Upper, Denture - Lower and Glasses Allergies Allergies Allergy/AdvReac Type Severity Reaction Status Date / Time cephalexin Allergy Severe Difficulty Verified 03/12/23 22:00 Breathing heparin Allergy Severe Decreased Verified 03/12/23 22:00 WBC count ciprofloxacin Allergy Unknown ? UNSURE Verified 03/12/23 22:04 OF SIDE EFFECT/LEG PAIN? lactose Allergy Unknown unknown Verified 03/12/23 22:00 nortriptyline Allergy Unknown hyperactivi Verified 03/12/23 22:00 ty blue dye AdvReac Severe TACHYCARDIA Verified 03/12/23 22:00 duloxetine AdvReac Severe TACHYCARDIA Verified 03/12/23 22:00 dextromethorphan AdvReac Intermediate GI SYMPTOMS Verified 03/12/23 22:02 famotidine AdvReac Intermediate afib and Verified 03/12/23 22:02 confusion guaifenesin AdvReac Intermediate GI SYMPTOMS Verified 03/12/23 22:02 pantoprazole AdvReac Intermediate leg pain Verified 03/12/23 22:02 ranitidine AdvReac Intermediate GI SYMPTOMS Verified 03/12/23 22:02 yellow dye AdvReac Intermediate GI SYMPTOMS Verified 03/12/23 22:02 Home Meds Home Medications Medication Instructions Recorded Confirmed cholecalciferol (vitamin D3) 25 1,000 unit PO BID 06/13/18 03/12/23 mcg (1,000 unit) tablet apixaban 2.5 mg tablet (Eliquis) 2.5 mg PO BID 05/16/19 03/12/23 cetirizine 10 mg capsule (Zyrtec) 10 mg PO HS 05/16/19 03/12/23 latanoprost 0.005 % eye drops 1 drp OPB HS 05/16/19 03/12/23 (Xalatan) acetaminophen 500 mg tablet 1,000 mg PO TID 08/04/21 03/12/23 aloe vera 1 applic topical UD PRN neuropathy 08/04/21 03/12/23 area sodium chloride 0.9 % nasal 1 ml intranasal Q30M PRN dry nose 08/04/21 03/12/23 solution amlodipine 5 mg tablet 5 mg PO QPM 05/22/22 03/12/23 melatonin 1 mg chewable tablet 1 mg PO HS 03/12/23 03/12/23 Results & Data (ED) Vital Signs Vital Signs - 24 hr 03/10/23 21:56 03/10/23 23:06 03/11/23 00:14 Temperature 36.4 C L Temperature Source Temporal Artery Scan Pulse Rate 87 65 Pulse Rate [Apical] 65 Respiratory Rate 18 18 Respiratory Effort / Characteristics Non-Labored Non-Labored Spontaneous Respiratory Depth Normal Normal Respiratory Pattern Regular Blood Pressure 162/90 H Blood Pressure [Left Arm] 152/71 H Blood Pressure Mean 114 Blood Pressure Mean [Left Arm] 98 Pulse Oximetry 97 98 Oxygen Delivery Method Room Air Room Air Sepsis Recent Fever Within 48 Hours No Sepsis New/Unexplained Change in Mental Status No Sepsis Action Taken by Nursing No Action Required Home Medications Current Medication List: was personally reviewed by me Laboratory Data Attestation: I reviewed the patient's lab results. 03/10/23 23:22 03/10/23 23:22 Lab Results 03/10/23 03/10/23 03/10/23 Range/Units 23:00 23:22 23:22 WBC 5.19 (4.8-10.8) K/ul RBC 4.53 (4.20-5.40) M/uL Hgb 15.4 (12.0-16.0) g/dl Hct 42.4 (37.0-47.0) % MCV 93.6 (80.0-100.0) fL MCH 34.0 (25.0-34.0) pg MCHC 36.3 H (32.0-36.0) g/dL RDW Std Deviation 47.7 H (36.4-46.3) fL RDW Coeff of Kyree 13.9 (11.5-14.5) % Plt Count 127 L (130-400) K/uL MPV 10.7 (9.4-12.4) fL Immature Gran % (Auto) 0.2 % Neut % (Auto) 78.1 % Lymph % (Auto) 14.8 % Rogers % (Auto) 6.7 % Eos % (Auto) 0.0 % Baso % (Auto) 0.2 % Neut # (Auto) 4.05 (1.40-6.50) K/uL Lymph # (Auto) 0.77 L (1.2-3.4) K/uL Rogers # (Auto) 0.35 (0.11-0.59) K/uL Eos # (Auto) 0.00 (0-0.50) K/uL Baso # (Auto) 0.01 (0-0.2) K/uL Immature Gran # (Auto) 0.01 (0.01-0.20) K/uL PT 11.6 (9.0-12.0) Seconds INR 1.1 (0.9-1.1) APTT 28.2 (21.0-31.0) Seconds PTT Ratio 1.0 Sodium (136-145) mmol/L Potassium (3.5-5.1) mmol/L Chloride (98-107) mmol/L Carbon Dioxide (21-32) mmol/L Anion Gap (3-11) BUN (6-23) mg/dl Creatinine (0.6-1.2) mg/dl Est Cr Clr Drug Dosing ml/min Est GFR ( Amer) ml/min Est GFR (Non-Af Amer) ml/min BUN/Creatinine Ratio (10-20) Glucose (70-99(Fasting)) mg/dl Osmolality (280-300) mOsm/kg Calcium (8.6-10.3) mg/dl Magnesium (1.7-2.4) mg/dl Total Bilirubin (0.2-1.0) mg/dl AST (13-39) U/L ALT (7-52) U/L Alkaline Phosphatase (34-104) U/L Troponin I High Sens (0-14) pg/ml Total Protein (6.0-8.3) gm/dl Albumin (3.4-5.0) gm/dl Globulin (2.5-4.0) gm/dl Albumin/Globulin Ratio (0.9-2) TSH (0.300-4.500) uIu/ml Urine Color Urine Appearance (Clear) Urine pH (4.5-7.5) Ur Specific [place] (1.000-1.030) Urine Protein (Negative) Urine Glucose (UA) (Negative) Urine Ketones (Negative) Urine Blood (Negative) Urine Nitrite (Negative) Urine Bilirubin (Negative) Urine Urobilinogen (Negative) Ur Leukocyte Esterase (Negative) Urine Opiates Screen (Neg) Ur Methadone, Qual (Neg) Urine Barbiturates (Neg) Ur Phencyclidine (PCP) (Neg) U Amphetamin/Meth Scrn (Neg) MDMA (Ecstasy) Screen (Neg) U Benzodiazepines Scrn (Neg) Ur Cocaine Metabolite (Neg) U Marijuana (THC) Screen (Neg) Ethyl Alcohol mg/dL (<10.0) mg/dl Anaplasma Smear Babesia Smear Lyme Disease IgG Ab (Negative) Lyme Disease IgM Ab (Negative) SARS-CoV-2 (PCR) NEGATIVE (Negative) Influenza Type A (PCR) Negative (Neg) Influenza Type B (PCR) Negative (Neg) RSV (RT-PCR) Negative (Neg) 03/10/23 03/10/23 03/10/23 Range/Units 23:22 23:32 23:32 WBC (4.8-10.8) K/ul RBC (4.20-5.40) M/uL Hgb (12.0-16.0) g/dl Hct (37.0-47.0) % MCV (80.0-100.0) fL MCH (25.0-34.0) pg MCHC (32.0-36.0) g/dL RDW Std Deviation (36.4-46.3) fL RDW Coeff of Kyree (11.5-14.5) % Plt Count (130-400) K/uL MPV (9.4-12.4) fL Immature Gran % (Auto) % Neut % (Auto) % Lymph % (Auto) % Rogers % (Auto) % Eos % (Auto) % Baso % (Auto) % Neut # (Auto) (1.40-6.50) K/uL Lymph # (Auto) (1.2-3.4) K/uL Rogers # (Auto) (0.11-0.59) K/uL Eos # (Auto) (0-0.50) K/uL Baso # (Auto) (0-0.2) K/uL Immature Gran # (Auto) (0.01-0.20) K/uL PT (9.0-12.0) Seconds INR (0.9-1.1) APTT (21.0-31.0) Seconds PTT Ratio Sodium 128 L (136-145) mmol/L Potassium 3.3 L (3.5-5.1) mmol/L Chloride 92 L (98-107) mmol/L Carbon Dioxide 25 (21-32) mmol/L Anion Gap 11 (3-11) BUN 18 (6-23) mg/dl Creatinine 0.76 (0.6-1.2) mg/dl Est Cr Clr Drug Dosing 51.6 ml/min Est GFR ( Amer) 83.5 ml/min Est GFR (Non-Af Amer) 72.0 ml/min BUN/Creatinine Ratio 23.7 H (10-20) Glucose 93 (70-99(Fasting)) mg/dl Osmolality (280-300) mOsm/kg Calcium 9.5 (8.6-10.3) mg/dl Magnesium 2.1 (1.7-2.4) mg/dl Total Bilirubin 2.2 H (0.2-1.0) mg/dl AST 24 (13-39) U/L ALT 21 (7-52) U/L Alkaline Phosphatase 49 (34-104) U/L Troponin I High Sens 4.2 (0-14) pg/ml Total Protein 7.1 (6.0-8.3) gm/dl Albumin 4.5 (3.4-5.0) gm/dl Globulin 2.6 (2.5-4.0) gm/dl Albumin/Globulin Ratio 1.7 (0.9-2) TSH (0.300-4.500) uIu/ml Urine Color Yellow Urine Appearance Clear (Clear) Urine pH 7.5 (4.5-7.5) Ur Specific [place] 1.012 (1.000-1.030) Urine Protein Negative (Negative) Urine Glucose (UA) Negative (Negative) Urine Ketones 1+ H (Negative) Urine Blood Negative (Negative) Urine Nitrite Negative (Negative) Urine Bilirubin Negative (Negative) Urine Urobilinogen Negative (Negative) Ur Leukocyte Esterase Negative (Negative) Urine Opiates Screen Neg (Neg) Ur Methadone, Qual Neg (Neg) Urine Barbiturates Neg (Neg) Ur Phencyclidine (PCP) Neg (Neg) U Amphetamin/Meth Scrn Neg (Neg) MDMA (Ecstasy) Screen Neg (Neg) U Benzodiazepines Scrn Neg (Neg) Ur Cocaine Metabolite Neg (Neg) U Marijuana (THC) Screen Neg (Neg) Ethyl Alcohol mg/dL (<10.0) mg/dl Anaplasma Smear Babesia Smear Lyme Disease IgG Ab (Negative) Lyme Disease IgM Ab (Negative) SARS-CoV-2 (PCR) (Negative) Influenza Type A (PCR) (Neg) Influenza Type B (PCR) (Neg) RSV (RT-PCR) (Neg) 03/10/23 03/10/23 03/10/23 Range/Units 23:32 23:32 23:32 WBC (4.8-10.8) K/ul RBC (4.20-5.40) M/uL Hgb (12.0-16.0) g/dl Hct (37.0-47.0) % MCV (80.0-100.0) fL MCH (25.0-34.0) pg MCHC (32.0-36.0) g/dL RDW Std Deviation (36.4-46.3) fL RDW Coeff of Kyree (11.5-14.5) % Plt Count (130-400) K/uL MPV (9.4-12.4) fL Immature Gran % (Auto) % Neut % (Auto) % Lymph % (Auto) % Rogers % (Auto) % Eos % (Auto) % Baso % (Auto) % Neut # (Auto) (1.40-6.50) K/uL Lymph # (Auto) (1.2-3.4) K/uL [place] # (Auto) (0.11-0.59) K/uL Eos # (Auto) (0-0.50) K/uL Baso # (Auto) (0-0.2) K/uL Immature Gran # (Auto) (0.01-0.20) K/uL PT (9.0-12.0) Seconds INR (0.9-1.1) APTT (21.0-31.0) Seconds PTT Ratio Sodium (136-145) mmol/L Potassium (3.5-5.1) mmol/L Chloride (98-107) mmol/L Carbon Dioxide (21-32) mmol/L Anion Gap (3-11) BUN (6-23) mg/dl Creatinine (0.6-1.2) mg/dl Est Cr Clr Drug Dosing ml/min Est GFR ( Amer) ml/min Est GFR (Non-Af Amer) ml/min BUN/Creatinine Ratio (10-20) Glucose (70-99(Fasting)) mg/dl Osmolality 265 L (280-300) mOsm/kg Calcium (8.6-10.3) mg/dl Magnesium (1.7-2.4) mg/dl Total Bilirubin (0.2-1.0) mg/dl AST (13-39) U/L ALT (7-52) U/L Alkaline Phosphatase (34-104) U/L Troponin I High Sens (0-14) pg/ml Total Protein (6.0-8.3) gm/dl Albumin (3.4-5.0) gm/dl Globulin (2.5-4.0) gm/dl Albumin/Globulin Ratio (0.9-2) TSH (0.300-4.500) uIu/ml Urine Color Urine Appearance (Clear) Urine pH (4.5-7.5) Ur Specific [place] (1.000-1.030) Urine Protein (Negative) Urine Glucose (UA) (Negative) Urine Ketones (Negative) Urine Blood (Negative) Urine Nitrite (Negative) Urine Bilirubin (Negative) Urine Urobilinogen (Negative) Ur Leukocyte Esterase (Negative) Urine Opiates Screen (Neg) Ur Methadone, Qual (Neg) Urine Barbiturates (Neg) Ur Phencyclidine (PCP) (Neg) U Amphetamin/Meth Scrn (Neg) MDMA (Ecstasy) Screen (Neg) U Benzodiazepines Scrn (Neg) Ur Cocaine Metabolite (Neg) U Marijuana (THC) Screen (Neg) Ethyl Alcohol mg/dL (<10.0) mg/dl Anaplasma Smear See Comment Babesia Smear See Comment Lyme Disease IgG Ab Negative (Negative) Lyme Disease IgM Ab Negative (Negative) SARS-CoV-2 (PCR) (Negative) Influenza Type A (PCR) (Neg) Influenza Type B (PCR) (Neg) RSV (RT-PCR) (Neg) 03/11/23 03/11/23 Range/Units 00:41 00:41 WBC (4.8-10.8) K/ul RBC (4.20-5.40) M/uL Hgb (12.0-16.0) g/dl Hct (37.0-47.0) % MCV (80.0-100.0) fL MCH (25.0-34.0) pg MCHC (32.0-36.0) g/dL RDW Std Deviation (36.4-46.3) fL RDW Coeff of Kyree (11.5-14.5) % Plt Count (130-400) K/uL MPV (9.4-12.4) fL Immature Gran % (Auto) % Neut % (Auto) % Lymph % (Auto) % Rogers % (Auto) % Eos % (Auto) % Baso % (Auto) % Neut # (Auto) (1.40-6.50) K/uL Lymph # (Auto) (1.2-3.4) K/uL [place] # (Auto) (0.11-0.59) K/uL Eos # (Auto) (0-0.50) K/uL Baso # (Auto) (0-0.2) K/uL Immature Gran # (Auto) (0.01-0.20) K/uL PT (9.0-12.0) Seconds INR (0.9-1.1) APTT (21.0-31.0) Seconds PTT Ratio Sodium (136-145) mmol/L Potassium (3.5-5.1) mmol/L Chloride (98-107) mmol/L Carbon Dioxide (21-32) mmol/L Anion Gap (3-11) BUN (6-23) mg/dl Creatinine (0.6-1.2) mg/dl Est Cr Clr Drug Dosing ml/min Est GFR ( Amer) ml/min Est GFR (Non-Af Amer) ml/min BUN/Creatinine Ratio (10-20) Glucose (70-99(Fasting)) mg/dl Osmolality (280-300) mOsm/kg Calcium (8.6-10.3) mg/dl Magnesium (1.7-2.4) mg/dl Total Bilirubin (0.2-1.0) mg/dl AST (13-39) U/L ALT (7-52) U/L Alkaline Phosphatase (34-104) U/L Troponin I High Sens (0-14) pg/ml Total Protein (6.0-8.3) gm/dl Albumin (3.4-5.0) gm/dl Globulin (2.5-4.0) gm/dl Albumin/Globulin Ratio (0.9-2) TSH 2.859 (0.300-4.500) uIu/ml Urine Color Urine Appearance (Clear) Urine pH (4.5-7.5) Ur Specific [place] (1.000-1.030) Urine Protein (Negative) Urine Glucose (UA) (Negative) Urine Ketones (Negative) Urine Blood (Negative) Urine Nitrite (Negative) Urine Bilirubin (Negative) Urine Urobilinogen (Negative) Ur Leukocyte Esterase (Negative) Urine Opiates Screen (Neg) Ur Methadone, Qual (Neg) Urine Barbiturates (Neg) Ur Phencyclidine (PCP) (Neg) U Amphetamin/Meth Scrn (Neg) MDMA (Ecstasy) Screen (Neg) U Benzodiazepines Scrn (Neg) Ur Cocaine Metabolite (Neg) U Marijuana (THC) Screen (Neg) Ethyl Alcohol mg/dL < 10.0 (<10.0) mg/dl Anaplasma Smear Babesia Smear Lyme Disease IgG Ab (Negative) Lyme Disease IgM Ab (Negative) SARS-CoV-2 (PCR) (Negative) Influenza Type A (PCR) (Neg) Influenza Type B (PCR) (Neg) RSV (RT-PCR) (Neg) Administered Medications Discontinued Medications Acetaminophen (Acetaminophen 500 Mg Tab) 1,000 mg PO Q8 JEY Stop: 04/10/23 05:59 Last Admin: 03/11/23 13:06 Dose: 1,000 mg Documented By: Admin: 03/11/23 06:07 Dose: 1,000 mg Documented By: UTE Amlodipine Besylate (Amlodipine Besylate 5 Mg Tab) 2.5 mg PO DAILY JEY Stop: 04/10/23 08:59 Last Admin: 03/11/23 09:21 Dose: 2.5 mg Documented By: CHRIS Apixaban (Apixaban 2.5 Mg Tab) 2.5 mg PO BID JEY Stop: 04/10/23 08:59 Last Admin: 03/11/23 09:20 Dose: 2.5 mg Documented By: CHRIS Fluticasone Propionate (Fluticasone Propionate Na Spr 16 Gm Btl) 1 sprays NIKHIL DAILY JEY Stop: 04/10/23 08:59 Last Admin: 03/11/23 09:22 Dose: 1 sprays Documented By: CHRIS Ioversol (Ioversol 350 Mg 125ml Prefilled Syringe) 125 ml IV ONCE ONE Stop: 03/11/23 00:01 Last Admin: 03/11/23 00:01 Dose: 114 ml Documented By: DAWOOD Pneumococcal Polyvalent Vaccine (Pneumococcal Polysaccharides 25 Mcg/0.5 Ml Vial/Syr) 25 mcg IM .ONCE ONE Stop: 03/11/23 05:53 Last Admin: 03/11/23 13:07 Dose: 25 mcg Documented By: CHRIS Potassium Chloride (Potassium Chloride Crtab 20 Meq Tabcr) 40 meq PO NOW STA Stop: 03/11/23 02:21 Last Admin: 03/11/23 02:45 Dose: 40 meq Documented By: UTE Imaging Data Radiologist's Impression: Head CT 03/10/23 22:49 CR Exam(s): CT HEAD Without Contrast EXAM: CT Head Without Intravenous Contrast CLINICAL HISTORY: Reason for exam: neuro deficit, acute stroke suspected. TECHNIQUE: Axial computed tomography images of the head/brain without intravenous contrast. Automated exposure control was utilized for the study. A dose lowering technique was utilized adhering to the principles of ALARA. COMPARISON: 09/27/2022 FINDINGS: Brain: Moderate periventricular white matter changes, likely related to microangiopathy. No hemorrhage. Ventricles: Unremarkable. No ventriculomegaly. Bones/joints: Unremarkable. No acute fracture. Soft tissues: Unremarkable. Sinuses: Unremarkable as visualized. No acute sinusitis. Mastoid air cells: Unremarkable as visualized. No mastoid effusion. IMPRESSION: Moderate periventricular white matter changes, likely related to microangiopathy. Communications: Call Doctor Stroke Electronically signed by: Colin Charles M.D. 03/11/23 00:38 AM Head CTA 03/10/23 22:49 CR Exam(s): CTA HEAD With Contrast IV Amt: 114 ml optiray 350 EXAM: CT Angiography Head With Intravenous Contrast CLINICAL HISTORY: Reason for exam: neuro deficit, acute stroke suspected. TECHNIQUE: Axial computed tomographic angiography images of the head with intravenous contrast. Automated exposure control was utilized for the study. A dose lowering technique was utilized adhering to the principles of ALARA. MIP reconstructed images were created and reviewed. CONTRAST: Patient received 114 ml optiray 350 of IV contrast COMPARISON: No relevant prior studies available. FINDINGS: Right internal carotid artery: No acute findings. Intracranial segment is patent with no significant stenosis. No aneurysm. Right anterior cerebral artery: Unremarkable. No occlusion or significant stenosis. No aneurysm. Right middle cerebral artery: Unremarkable. No occlusion or significant stenosis. No aneurysm. Right posterior cerebral artery: Moderate atherosclerotic disease of bilateral proximal posterior cerebral arteries. No occlusion or significant stenosis. No aneurysm. Right vertebral artery: Unremarkable as visualized. Left internal carotid artery: No acute findings. Intracranial segment is patent with no significant stenosis. No aneurysm. Left anterior cerebral artery: Unremarkable. No occlusion or significant stenosis. No aneurysm. Left middle cerebral artery: Unremarkable. No occlusion or significant stenosis. No aneurysm. Left posterior cerebral artery: Moderate atherosclerotic disease of bilateral proximal posterior cerebral arteries. Left vertebral artery: Unremarkable as visualized. Basilar artery: Unremarkable. No occlusion or significant stenosis. No aneurysm. IMPRESSION: 1. No large vessel intracranial occlusion. 2. No intracranial aneurysm.. Communications: Call Doctor Stroke Electronically signed by: Colin Charles M.D. 03/11/23 00:44 AM Neck CTA 03/10/23 22:49 CR Exam(s): CTA NECK With Contrast IV Amt: 114 ml optiray 350 EXAM: CT Angiography Neck With Intravenous Contrast CLINICAL HISTORY: Reason for exam: neuro deficit, acute stroke suspected. TECHNIQUE: Routine carotid CT angiography protocol was performed with intravenous contrast. NASCET criteria using the distal ICAs for comparison were used for evaluation of stenoses. Automated exposure control was utilized for the study. A dose lowering technique was utilized adhering to the principles of ALARA. MIP reconstructed images were created and reviewed. CONTRAST: Patient received 114 ml optiray 350 of IV contrast COMPARISON: None. FINDINGS: VASCULATURE: Right common carotid artery: Unremarkable. No occlusion or significant stenosis. No dissection. Right internal carotid artery: Questionable linear defect within the proximal right internal carotid artery. Question if this could represent a nonflow limiting dissection. This finding should be confirmed with a carotid ultrasound. Mild calcified plaque within the right carotid bulb without hemodynamically significant stenosis. Right external carotid artery: Unremarkable. No occlusion. Right vertebral artery: Unremarkable. No occlusion or significant stenosis. No dissection. Left common carotid artery: Unremarkable. No occlusion or significant stenosis. No dissection. Left internal carotid artery: Unremarkable. Extracranial segment is patent with no occlusion or significant stenosis. No dissection. Left external carotid artery: Unremarkable. No occlusion. Left vertebral artery: Unremarkable. No occlusion or significant stenosis. No dissection. NECK: Bones/joints: Unremarkable. Soft tissues: Unremarkable. Lung apices: Clear. CAROTID STENOSIS REFERENCE USING NASCET CRITERIA: % ICA stenosis = (1 - narrowest ICA diameter/diameter of distal cervical ICA) x 100. Mild - <50% stenosis. Moderate - 50-69% stenosis. Severe - 70-94% stenosis. Near occlusion - 95-99% stenosis. Occluded - 100% stenosis. IMPRESSION: Questionable linear defect within the proximal right internal carotid artery. Question if this could represent a nonflow limiting dissection. This finding should be confirmed with a carotid ultrasound. No hemodynamically significant carotid stenosis. Patent bilateral vertebral arteries without evidence of occlusion or dissection. Communications: Call Doctor Stroke Electronically signed by: Colin Charles M.D. 03/11/23 00:51 AM Discharge Plan Visit Data Chief Complaint: Confusion Stated Complaint: TIRED,CONFUSION,DEHYDRATED,NAUSEA ED Provider: Tiffanie Boucher Discharge Problem: Acute alteration in mental status, Hyponatremia, Chronic anticoagulation Patient Disposition: Home - Self-Care Condition: Good Discharge Instructions Interventions: ED Discharge Assessment Last Done: 03/11/23 02:20
[2023-03-11 01:11] LABS: Amphetamines+Metham, Urine Neg (Neg); Barbiturates, Urine Neg (Neg); Benzodiazepine, Urine Neg (Neg); Cocaine, Urine Neg (Neg); MDMA (Ecstacy), Urine Neg (Neg); Methadone, Urine Neg (Neg); Opiate, Urine Neg (Neg); Phencyclidine, Urine Neg (Neg)
--- NOTE | 2023-03-11 02:07 | History & Physical Report ---
Date of Service March 11, 2023 Assessment & Plan (1) Acute alteration in mental status: Plan: Patient with confusion and weakness/fatigue. Seems to be improving per patient and daughter. Broad differential - consider hyponatremia, Ru=100. Hypokalemia -Hyponatremia workup as below -Check Ammonia -Check TSH with T4 -Awaiting UA -CT scan with suspected artifact - will order repeat US carotid doppler -K repletion (2) Hyponatremia: Plan: Eu=960. Was last 135 on 09/27/22 and normal before that. Patient reports adequate oral intake at home. Does not drink excess water. She is on chlorthalidone. Hyponatremia possibly contributing to patient's new confusion and fatigue -Check urine and serum osmolality -Check urine Na -Repeat BMP in AM -Hold Chlorthalidone Also with mild thrombocytopenia and elevation of Tbili. Question liver disease? viral infection? tick-borne illness -Checking Ammonia -Check Lyme and Anaplasmosis/Babesiosis smear -Repeat CBC and LFTs in AM (3) Hypertension: Plan: Chronic. Mildly hypertensive in the ER. -Continue Amlodipine -Hold Chlorthalidone in setting of hyponatremia (4) Atrial fibrillation: Plan: Chronic. Rate controlled. Pacer in place -Continue Eliquis anticoagulation History of Present Illness Chief Complaint: confusion Primary Care Provider: Dalila Nelson DO Fallon Negro is an 83yo female with history of atrial fibrillation on Eliquis anticoagulation and hypertension presenting with acute confusion and weakness. Patient called her daughter at 21:00 with complaint of being extremely tired and confused. She does not have a clear memory of the events, states she does not recall cooking her grandson dinner. She also had some nausea. She denies fever, chills, cough, SOB, chest pain, palpitations. Denies abdominal pain, vomiting. She had some non-bloody diarrhea yesterday which is baseline for her. No slurred speech, focal numbness/tingling or weakness. Patient does state that "maybe one of my arms felt different but I don't remember which one." Overall patient eats well, is compliant with her medications. No additional complaints at this time. In the ER she is afebrile, HD stable Allergies Allergy/AdvReac Type Severity Reaction Status Date / Time cephalexin Allergy Severe Difficulty Verified 05/22/22 19:38 Breathing heparin Allergy Severe Decreased Verified 05/22/22 19:38 WBC count ciprofloxacin Allergy Unknown ? UNSURE Verified 05/22/22 19:38 OF SIDE EFFECT/LEG PAIN? lactose Allergy Unknown unknown Verified 05/22/22 19:38 nortriptyline Allergy Unknown Unknown Verified 05/22/22 19:38 blue dye AdvReac Severe TACHYCARDIA Verified 05/22/22 19:38 duloxetine AdvReac Severe TACHYCARDIA Verified 05/22/22 19:38 dextromethorphan AdvReac Intermediate GI SYMPTOMS Verified 05/22/22 19:38 famotidine AdvReac Intermediate GI SYMPTOMS Verified 05/22/22 19:38 guaifenesin AdvReac Intermediate GI SYMPTOMS Verified 05/22/22 19:38 pantoprazole AdvReac Intermediate GI SYMPTOMS Verified 05/22/22 19:38 ranitidine AdvReac Intermediate GI SYMPTOMS Verified 05/22/22 19:38 yellow dye AdvReac Intermediate GI SYMPTOMS Verified 05/22/22 19:38 Home Medications Medication Instructions Recorded Confirmed Type cholecalciferol (vitamin D3) 25 1,000 unit PO BID 06/13/18 03/11/23 History mcg (1,000 unit) tablet apixaban 2.5 mg tablet (Eliquis) 2.5 mg PO BID 05/16/19 03/11/23 History cetirizine 10 mg capsule (Zyrtec) 10 mg PO HS 05/16/19 03/11/23 History latanoprost 0.005 % eye drops 1 drp OPB HS 05/16/19 03/11/23 History (Xalatan) acetaminophen 500 mg tablet 1,000 mg PO TID 08/04/21 03/11/23 History aloe vera 1 applic topical UD PRN neuropathy 08/04/21 03/11/23 History area sodium chloride 0.9 % nasal 1 ml intranasal Q30M PRN dry nose 08/04/21 03/11/23 History solution amlodipine 5 mg tablet 5 mg PO HS 05/22/22 03/11/23 History fluticasone propionate 50 1 spray intranasal DAILY 05/22/22 03/11/23 History mcg/actuation nasal spray,suspension ketotifen fumarate 0.025 % (0.035 1 drp OPB Q8H PRN Allergy Symptoms 05/22/22 03/11/23 History %) eye drops ([place]) amlodipine 2.5 mg tablet 2.5 mg PO DAILY 03/11/23 03/11/23 History chlorthalidone 25 mg tablet 25 mg PO .Q48HRS 03/11/23 03/11/23 History Past Med/Surg History Medical History Atrial fibrillation Cluster headache Hypertension Pacemaker Surgical History H/O prior ablation treatment History of hysterectomy History of mastectomy History of parathyroidectomy Hx of cholecystectomy Status post ablation of atrial fibrillation Family History Daughter Asthma Son Hearing loss Mother Lung disease Father Heart disease Other Hypertension Social History Smoking Status: Never smoker Preferred Language: Turkmen Feels Safe at Home: Yes Review of Systems Review of Systems: All systems reviewed & are unremarkable except as noted in HPI & below Physical Exam Physical Exam: General: patient resting comfortably, NAD, non-toxic in appearance, AA&O x 4 Skin: warm, dry, intact, no rashes or lesions HEENT: NC/AT, PERRL, EOMI, anicteric sclera, conjunctiva without injection, external ear normal to inspection and nontender, nares patent, moist mucus membranes, dentition intact, no oropharyngeal lesions, neck supple, trachea midline, no LAD, no thyromegaly, no JVD Heart: +S1/S2, regular, paced, no m/r/g Lungs: equal air entry bilaterally, no rales/rhonchi/wheezes Abd: +BS, soft, NT/ND, no masses/organomegaly/ascites Ext: warm, 2+ pulses in UE/LE bilaterally, no clubbing/cyanosis or edema Neuro: nonfocal, patient AA&O x 4, speech intact, no facial droop, moving all extremities on command with equal strength 5/5 Results & Data Results & Data Vital Signs (Past 12 Hours) Vital Signs Temp Pulse Pulse Resp BP BP Pulse Ox 03/11/23 01:25 36.5 C 03/11/23 00:14 65 18 152/71 H 98 03/10/23 23:06 65 03/10/23 21:56 36.4 C L 87 18 162/90 H 97 O2 Del Method 03/11/23 01:25 03/11/23 00:14 Room Air 03/10/23 23:06 03/10/23 21:56 Room Air Laboratory Results Laboratory Results WBC 5.19 K/ul (4.8-10.8) 03/10/23 23:22 RBC 4.53 M/uL (4.20-5.40) 03/10/23 23:22 Hgb 15.4 g/dl (12.0-16.0) 03/10/23 23:22 Hct 42.4 % (37.0-47.0) 03/10/23 23: MCV 93.6 fL (80.0-100.0) 03/10/23 23: MCH 34.0 pg (25.0-34.0) 03/10/23 23:22 MCHC 36.3 g/dL (32.0-36.0) H 03/10/23 23:22 RDW Std Deviation 47.7 fL (36.4-46.3) H 03/10/23 23:22 RDW Coeff of Kyree 13.9 % (11.5-14.5) 03/10/23 23: Plt Count 127 K/uL (130-400) L 03/10/23 23:22 MPV 10.7 fL (9.4-12.4) 03/10/23 23:22 Immature Gran % (Auto) 0.2 % 03/10/23 23: Neut % (Auto) 78.1 % 03/10/23 23: Lymph % (Auto) 14.8 % 03/10/23 23:22 [place] % (Auto) 6.7 % 03/10/23 23:22 Eos % (Auto) 0.0 % 03/10/23 23: Baso % (Auto) 0.2 % 03/10/23 23: Neut # (Auto) 4.05 K/uL (1.40-6.50) 03/10/23 23:22 Lymph # (Auto) 0.77 K/uL (1.2-3.4) L 03/10/23 23:22 Monroe # (Auto) 0.35 K/uL (0.11-0.59) 03/10/23 23:22 Eos # (Auto) 0.00 K/uL (0-0.50) 03/10/23 23:22 Baso # (Auto) 0.01 K/uL (0-0.2) 03/10/23 23:22 Immature Gran # (Auto) 0.01 K/uL (0.01-0.20) 03/10/23 23:22 PT 11.6 Seconds (9.0-12.0) 03/10/23 23:22 INR 1.1 (0.9-1.1) 03/10/23 23:22 APTT 28.2 Seconds (21.0-31.0) 03/10/23 23: PTT Ratio 1.0 03/10/23 23:22 Sodium 128 mmol/L (136-145) L 03/10/23 23:22 Potassium 3.3 mmol/L (3.5-5.1) L 03/10/23 23:22 Chloride 92 mmol/L (98-107) L 03/10/23 23:22 Carbon Dioxide 25 mmol/L (21-32) 03/10/23 23:22 Anion Gap 11 (3-11) 03/10/23 23:22 BUN 18 mg/dl (6-23) 03/10/23 23:22 Creatinine 0.76 mg/dl (0.6-1.2) 03/10/23 23:22 Est Cr Clr Drug Dosing 51.6 ml/min 03/10/23 23:22 Est GFR ( Amer) 83.5 ml/min 03/10/23 23:22 Est GFR (Non-Af Amer) 72.0 ml/min 03/10/23 23:22 BUN/Creatinine Ratio 23.7 (10-20) H 03/10/23 23:22 Glucose 93 mg/dl (70-99(Fasting)) 03/10/23 23:22 Calcium 9.5 mg/dl (8.6-10.3) 03/10/23 23:22 Magnesium 2.1 mg/dl (1.7-2.4) 03/10/23 23:22 Total Bilirubin 2.2 mg/dl (0.2-1.0) H 03/10/23 23:22 AST 24 U/L (13-39) 03/10/23 23:22 ALT 21 U/L (7-52) 03/10/23 23:22 Alkaline Phosphatase 49 U/L (34-104) 03/10/23 23:22 Troponin I High Sens 4.2 pg/ml (0-14) 03/10/23 23:22 Total Protein 7.1 gm/dl (6.0-8.3) 03/10/23 23:22 Albumin 4.5 gm/dl (3.4-5.0) 03/10/23 23:22 Globulin 2.6 gm/dl (2.5-4.0) 03/10/23 23:22 Albumin/Globulin Ratio 1.7 (0.9-2) 03/10/23 23:22 Urine Color Yellow 03/10/23 23:32 Urine Appearance Clear (Clear) 03/10/23 23:32 Urine pH 7.5 (4.5-7.5) 03/10/23 23:32 Ur Specific Darby 1.012 (1.000-1.030) 03/10/23 23:32 Urine Protein Negative (Negative) 03/10/23 23:32 Urine Glucose (UA) Negative (Negative) 03/10/23 23:32 Urine Ketones 1+ (Negative) H 03/10/23 23:32 Urine Blood Negative (Negative) 03/10/23 23:32 Urine Nitrite Negative (Negative) 03/10/23 23:32 Urine Bilirubin Negative (Negative) 03/10/23 23:32 Urine Urobilinogen Negative (Negative) 03/10/23 23:32 Ur Leukocyte Esterase Negative (Negative) 03/10/23 23:32 Urine Opiates Screen Neg (Neg) 03/10/23 23:32 Ur Methadone, Qual Neg (Neg) 03/10/23 23:32 Urine Barbiturates Neg (Neg) 03/10/23 23:32 Ur Phencyclidine (PCP) Neg (Neg) 03/10/23 23:32 U Amphetamin/Meth Scrn Neg (Neg) 03/10/23 23:32 MDMA (Ecstasy) Screen Neg (Neg) 03/10/23 23:32 U Benzodiazepines Scrn Neg (Neg) 03/10/23 23:32 Ur Cocaine Metabolite Neg (Neg) 03/10/23 23:32 U Marijuana (THC) Screen Neg (Neg) 03/10/23 23:32 Ethyl Alcohol mg/dL < 10.0 mg/dl (<10.0) 03/11/23 00:41 SARS-CoV-2 (PCR) NEGATIVE (Negative) 03/10/23 23:00 Influenza Type A (PCR) Negative (Neg) 03/10/23 23:00 Influenza Type B (PCR) Negative (Neg) 03/10/23 23:00 RSV (RT-PCR) Negative (Neg) 03/10/23 23:[address] 03/10/23 22:49 CR Exam(s): CT HEAD Without Contrast EXAM: CT Head Without Intravenous Contrast CLINICAL HISTORY: Reason for exam: neuro deficit, acute stroke suspected. TECHNIQUE: Axial computed tomography images of the head/brain without intravenous contrast. Automated exposure control was utilized for the study. A dose lowering technique was utilized adhering to the principles of ALARA. COMPARISON: 09/27/2022 FINDINGS: Brain: Moderate periventricular white matter changes, likely related to microangiopathy. No hemorrhage. Ventricles: Unremarkable. No ventriculomegaly. Bones/joints: Unremarkable. No acute fracture. Soft tissues: Unremarkable. Sinuses: Unremarkable as visualized. No acute sinusitis. Mastoid air cells: Unremarkable as visualized. No mastoid effusion. IMPRESSION: Moderate periventricular white matter changes, likely related to microangiopathy. Communications: Call Doctor Stroke Electronically signed by: Colin Charles M.D. 03/11/23 00:38 AM Head CTA 03/10/23 22:49 CR Exam(s): CTA HEAD With Contrast IV Amt: 114 ml optiray 350 EXAM: CT Angiography Head With Intravenous Contrast CLINICAL HISTORY: Reason for exam: neuro deficit, acute stroke suspected. TECHNIQUE: Axial computed tomographic angiography images of the head with intravenous contrast. Automated exposure control was utilized for the study. A dose lowering technique was utilized adhering to the principles of ALARA. MIP reconstructed images were created and reviewed. CONTRAST: Patient received 114 ml optiray 350 of IV contrast COMPARISON: No relevant prior studies available. FINDINGS: Right internal carotid artery: No acute findings. Intracranial segment is patent with no significant stenosis. No aneurysm. Right anterior cerebral artery: Unremarkable. No occlusion or significant stenosis. No aneurysm. Right middle cerebral artery: Unremarkable. No occlusion or significant stenosis. No aneurysm. Right posterior cerebral artery: Moderate atherosclerotic disease of bilateral proximal posterior cerebral arteries. No occlusion or significant stenosis. No aneurysm. Right vertebral artery: Unremarkable as visualized. Left internal carotid artery: No acute findings. Intracranial segment is patent with no significant stenosis. No aneurysm. Left anterior cerebral artery: Unremarkable. No occlusion or significant stenosis. No aneurysm. Left middle cerebral artery: Unremarkable. No occlusion or significant stenosis. No aneurysm. Left posterior cerebral artery: Moderate atherosclerotic disease of bilateral proximal posterior cerebral arteries. Left vertebral artery: Unremarkable as visualized. Basilar artery: Unremarkable. No occlusion or significant stenosis. No aneurysm. IMPRESSION: 1. No large vessel intracranial occlusion. 2. No intracranial aneurysm.. Communications: Call Doctor Stroke Electronically signed by: Colin Charles M.D. 03/11/23 00:44 AM Neck CTA 03/10/23 22:49 CR Exam(s): CTA NECK With Contrast IV Amt: 114 ml optiray 350 EXAM: CT Angiography Neck With Intravenous Contrast CLINICAL HISTORY: Reason for exam: neuro deficit, acute stroke suspected. TECHNIQUE: Routine carotid CT angiography protocol was performed with intravenous contrast. NASCET criteria using the distal ICAs for comparison were used for evaluation of stenoses. Automated exposure control was utilized for the study. A dose lowering technique was utilized adhering to the principles of ALARA. MIP reconstructed images were created and reviewed. CONTRAST: Patient received 114 ml optiray 350 of IV contrast COMPARISON: None. FINDINGS: VASCULATURE: Right common carotid artery: Unremarkable. No occlusion or significant stenosis. No dissection. Right internal carotid artery: Questionable linear defect within the proximal right internal carotid artery. Question if this could represent a nonflow limiting dissection. This finding should be confirmed with a carotid ultrasound. Mild calcified plaque within the right carotid bulb without hemodynamically significant stenosis. Right external carotid artery: Unremarkable. No occlusion. Right vertebral artery: Unremarkable. No occlusion or significant stenosis. No dissection. Left common carotid artery: Unremarkable. No occlusion or significant stenosis. No dissection. Left internal carotid artery: Unremarkable. Extracranial segment is patent with no occlusion or significant stenosis. No dissection. Left external carotid artery: Unremarkable. No occlusion. Left vertebral artery: Unremarkable. No occlusion or significant stenosis. No dissection. NECK: Bones/joints: Unremarkable. Soft tissues: Unremarkable. Lung apices: Clear. CAROTID STENOSIS REFERENCE USING NASCET CRITERIA: % ICA stenosis = (1 - narrowest ICA diameter/diameter of distal cervical ICA) x 100. Mild - <50% stenosis. Moderate - 50-69% stenosis. Severe - 70-94% stenosis. Near occlusion - 95-99% stenosis. Occluded - 100% stenosis. IMPRESSION: Questionable linear defect within the proximal right internal carotid artery. Question if this could represent a nonflow limiting dissection. This finding should be confirmed with a carotid ultrasound. No hemodynamically significant carotid stenosis. Patent bilateral vertebral arteries without evidence of occlusion or dissection. Communications: Call Doctor Stroke Electronically signed by: Colin Charles M.D. 03/11/23 00:51 AM PG Care Time/CCT Total # of Minutes Spent Total Time Spent with Patient: Total time spent is greater than 50% in coordination of care (as documented) at patient's floor/unit and/or counseling patient: Coding Level of Care Code 89191 INT INP/OBS CARE 3/75MIN Diagnoses Acute alteration in mental status R41.82 Hyponatremia E87.1 Hypertension I10 Atrial fibrillation I48.91
[2023-03-11] MEDS ORDERED: POTASSIUM CHLORIDE CRTAB 20 MEQ TABCR PO STA (02:20)
[2023-03-11] MEDS ORDERED: ONDANSETRON INJ 2 MG/ML 2 ML VIAL IV PRN (02:20)
[2023-03-11 02:55] LABS: Lyme Ab IgG w/WB Rflx Negative (Negative)
[2023-03-11 02:56] LABS: Lyme Ab IgM w/WB Rflx Negative (Negative)
[2023-03-11 03:47] LABS: Albumin Level 4.7 gm/dl (3.4-5.0); BUN Creatinine Ratio 22.5 (10-20); Bilirubin Direct 0.4 mg/dl (0-0.2); Bilirubin,Total 2.2 mg/dl (0.2-1.0); Calcium 9.7 mg/dl (8.6-10.3); Creatinine Clr Calc Pharmacy 55.2 ml/min; Est GFR (African American) 90.7 ml/min; Est GFR (Non-African American) 78.2 ml/min; Potassium 3.4 mmol/L (3.5-5.1); Total Protein 7.2 gm/dl (6.0-8.3)
--- NOTE | 2023-03-11 04:20 | Ultrasound Report ---
Exam(s): US CAROTID EXAM: US Duplex Bilateral Extracranial Arteries CLINICAL HISTORY: Reason for exam: right filling defect on CTA. TECHNIQUE: Real-time duplex ultrasound scan of the extracranial arteries integrating B-mode two-dimensional vascular structure, Doppler spectral analysis and color flow Doppler imaging. COMPARISON: CTA of the neck performed on 03/10/2023 FINDINGS: Right common carotid artery: Unremarkable. No occlusion or significant stenosis on color flow and spectral Doppler imaging. Right internal carotid artery: Mild plaque within the right carotid bulb. No evidence of dissection plane within the right internal carotid artery. Peak systolic velocity within the right internal carotid artery is 58 cm/s. Right external carotid artery: Unremarkable. No occlusion or significant stenosis on color flow and spectral Doppler imaging. Right vertebral artery: Unremarkable. Antegrade flow. Right ICA/CCA ratio: Unremarkable. Within normal limits. Left common carotid artery: Unremarkable. No occlusion or significant stenosis on color flow and spectral Doppler imaging. Left internal carotid artery: Peak systolic velocity of the distal left internal carotid artery is 80 cm/s. Minimal atherosclerotic disease of the left carotid bulb. Peak systolic velocity of the left internal carotid artery is 47 cm/s. No occlusion or significant stenosis on color flow and spectral Doppler imaging. Left external carotid artery: Unremarkable. No occlusion or significant stenosis on color flow and spectral Doppler imaging. Left vertebral artery: Unremarkable. Antegrade flow. Left ICA/CCA ratio: Unremarkable. Within normal limits. Lymph nodes: Unremarkable. No lymphadenopathy. CAROTID STENOSIS REFERENCE USING SRU CRITERIA: Mild - <50% stenosis. ICA PSV is less than 125 cm/second and plaque or intimal thickening is visible. Moderate - 50-69% stenosis. ICA PSV is 125 to 230 cm/second and plaque is visible. Severe - 70-94% stenosis. ICA PSV is more than 230 cm/second and visible plaque with lumen narrowing is seen. Near occlusion - 95-99% stenosis. ICA PSV is variable and significant plaque with luminal narrowing is seen. Occluded - 100% stenosis. No flow identified. IMPRESSION: No evidence of right internal carotid artery dissection. Mild atherosclerotic disease of bilateral carotid bulbs without hemodynamically significant carotid stenosis. Electronically signed by: Cloin Charles M.D. 03/11/23 04:20 AM
[2023-03-11 05:02] LABS: Appearance Urine Clear (Clear); Bilirubin Urine Negative (Negative); Blood Urine Negative (Negative); Color Urine Yellow; Glucose Urine UA Negative (Negative); Ketones Urine 1+ (Negative); Leukocyte Esterase Urine Negative (Negative); Nitrite Urine Negative (Negative); Protein Urine Negative (Negative); Specific Gravity Urine 1.019 (1.000-1.030); Urobilinogen Urine Negative (Negative); pH Urine 7.5 (4.5-7.5)
[2023-03-11] MEDS ORDERED: PNEUMOCOCCAL POLYSACCHARIDES 25 MCG/0.5 ML VIAL/SYR IM ONE (05:52)
[2023-03-11] MEDS: ACETAMINOPHEN 500 MG TAB PO SCH ×2 (06:07→13:06)
--- NOTE | 2023-03-11 07:30 | Hospitalist Progress Note ---
Date of Service March 11, 2023 Assessment & Plan (1) Acute alteration in mental status: (2) Hyponatremia: (3) Atrial fibrillation: (4) Hypertension: (5) Pacemaker: Plan Acute alteration in mental status: Plan: Patient with confusion and weakness/fatigue. Seems to be improving per patient and daughter. Broad differential - consider hyponatremia, Oy=577. Hypokalemia -Hyponatremia workup as below -Check Ammonia -Check TSH with T4 -Awaiting UA -CT scan with suspected artifact - will order repeat US carotid doppler -K repletion (2) Hyponatremia: Plan: Md=289. Was last 135 on 09/27/22 and normal before that. Patient reports adequate oral intake at home. Does not drink excess water. She is on chlorthalidone. Hyponatremia possibly contributing to patient's new confusion and fatigue -Check urine and serum osmolality -Check urine Na -Repeat BMP in AM -Hold Chlorthalidone Also with mild thrombocytopenia and elevation of Tbili. Question liver disease? viral infection? tick-borne illness -Checking Ammonia -Check Lyme and Anaplasmosis/Babesiosis smear -Repeat CBC and LFTs in AM (3) Hypertension: Plan: Chronic. Mildly hypertensive in the ER. -Continue Amlodipine -Hold Chlorthalidone in setting of hyponatremia (4) Atrial fibrillation: Plan: Chronic. Rate controlled. Pacer in place -Continue Eliquis anticoagulation Admission and Anticipated Discharge Date Admission Date: March 11, 2023 Subjective Pt is a [] yo [] with a past medical history of [] who presents to the hospital on [] for []. Review of Systems Review of Systems: Constitutional: denies fever, chills, [] HEENT: denies congestion, sore throat Cardio: denies chest pain, palpitations Resp: denies shortness of breath, cough GI: denies abdominal pain, nausea, vomiting, constipation, diarrhea : denies pain with urination, change in urinary frequency Neuro: denies new numbness, tingling, weakness Physical Exam Physical Exam: General:Alert and oriented, no acute distress, [] HEENT: Normocephalic, moist oral mucosa, Cardio: Regular rate and rhythm, no murmur, Resp:Lungs clear to auscultation b/l, no wheezes or rhonchi, GI: Soft and nontender, nondistended, bowel sounds active Skin: Warm, pink, dry, Psych: Mood-affect congruence. Results & Data Results & Data Vital Signs (Past 12 Hours) Vital Signs Temp Pulse Pulse Resp BP BP Pulse Ox 03/11/23 04:55 65 18 151/78 H 98 03/11/23 01:25 36.5 C 03/11/23 00:14 65 18 152/71 H 98 03/10/23 23:06 65 03/10/23 21:56 36.4 C L 87 18 162/90 H 97 O2 Del Method 03/11/23 04:55 Room Air 03/11/23 01:25 03/11/23 00:14 Room Air 03/10/23 23:06 03/10/23 21:56 Room Air
[2023-03-11] MEDS ORDERED: APIXABAN 2.5 MG TAB PO SCH (09:00)
[2023-03-11] MEDS ORDERED: amLODIPine BESYLATE 5 MG TAB PO SCH ×2 (09:00→21:00)
[2023-03-11] MEDS ORDERED: FLUTICASONE PROPIONATE NA SPR 16 GM BTL NAE SCH (09:00)
--- NOTE | 2023-03-11 14:13 | Discharge Summary ---
Date of Service March 11, 2023 Admission HPI Per Admitting Provider Fallon Negro is an 83yo female with history of atrial fibrillation on Eliquis anticoagulation and hypertension presenting with acute confusion and weakness. Patient called her daughter at 21:00 with complaint of being extremely tired and confused. She does not have a clear memory of the events, states she does not recall cooking her grandson dinner. She also had some nausea. She denies fever, chills, cough, SOB, chest pain, palpitations. Denies abdominal pain, vomiting. She had some non-bloody diarrhea yesterday which is baseline for her. No slurred speech, focal numbness/tingling or weakness. Patient does state that "maybe one of my arms felt different but I don't remember which one." Overall patient eats well, is compliant with her medications. No additional complaints at this time. In the ER she is afebrile, HD stable Admission Exam Per Admitting Provider General: patient resting comfortably, NAD, non-toxic in appearance, AA&O x 4 Skin: warm, dry, intact, no rashes or lesions HEENT: NC/AT, PERRL, EOMI, anicteric sclera, conjunctiva without injection, external ear normal to inspection and nontender, nares patent, moist mucus membranes, dentition intact, no oropharyngeal lesions, neck supple, trachea midline, no LAD, no thyromegaly, no JVD Heart: +S1/S2, regular, paced, no m/r/g Lungs: equal air entry bilaterally, no rales/rhonchi/wheezes Abd: +BS, soft, NT/ND, no masses/organomegaly/ascites Ext: warm, 2+ pulses in UE/LE bilaterally, no clubbing/cyanosis or edema Neuro: nonfocal, patient AA&O x 4, speech intact, no facial droop, moving all extremities on command with equal strength 5/5 Principal Diagnosis Altered mental status. Discharge Exam General:Alert and oriented, no acute distress, HEENT: Normocephalic, moist oral mucosa, Cardio: Regular rate and rhythm, no murmur, Resp:Lungs clear to auscultation b/l, no wheezes or rhonchi, GI: Soft and nontender, nondistended, bowel sounds active Skin: Warm, pink, dry, Psych: Mood-affect congruence. Discharge Data Allergies Allergy/AdvReac Type Severity Reaction Status Date / Time cephalexin Allergy Severe Difficulty Verified 05/22/22 19:38 Breathing heparin Allergy Severe Decreased Verified 05/22/22 19:38 WBC count ciprofloxacin Allergy Unknown ? UNSURE Verified 05/22/22 19:38 OF SIDE EFFECT/LEG PAIN? lactose Allergy Unknown unknown Verified 05/22/22 19:38 nortriptyline Allergy Unknown Unknown Verified 05/22/22 19:38 blue dye AdvReac Severe TACHYCARDIA Verified 05/22/22 19:38 duloxetine AdvReac Severe TACHYCARDIA Verified 05/22/22 19:38 dextromethorphan AdvReac Intermediate GI SYMPTOMS Verified 05/22/22 19:38 famotidine AdvReac Intermediate GI SYMPTOMS Verified 05/22/22 19:38 guaifenesin AdvReac Intermediate GI SYMPTOMS Verified 05/22/22 19:38 pantoprazole AdvReac Intermediate GI SYMPTOMS Verified 05/22/22 19:38 ranitidine AdvReac Intermediate GI SYMPTOMS Verified 05/22/22 19:38 yellow dye AdvReac Intermediate GI SYMPTOMS Verified 05/22/22 19:38 Consultations 03/11/23 01:34 ED Decision to Admit Stat Ordered Studies 03/10/23 22:49 CT angio head w con Stat CT angio neck with con Stat CT head/brain wo con Stat 03/11/23 00:52 US carotid doppler BI Stat Hospital Course (1) Acute alteration in mental status: (2) Hyponatremia: (3) Atrial fibrillation: (4) Hypertension: (5) Pacemaker: Plan #Acute alteration in mental status: Plan: Patient with confusion and weakness/fatigue.Broad differential - consider hyponatremia, Tw=614. - pt improved today and wanting to go home, daughter states this is her baseline and feels comfortable with her going home - lab and imaging workup negative for anything remarkable aside from hyponatremia noted - pt to have appointment next week with [facility] and get labs this week - will have pt discontinue chlorthalidone due to hyponatremia, at least until follow-up, and keep BP log at home #Hyponatremia: Plan: Tp=213. Was last 135 on 09/27/22 and normal before that. Patient reports adequate oral intake at home. Does not drink excess water. She is on chlorthalidone. Hyponatremia possibly contributing to patient's new confusion and fatigue -Check urine and serum osmolality -Check urine Na -Repeat BMP in AM -Hold Chlorthalidone #Mild thrombocytopenia and elevation of Tbili. -possibly liver disease vs viral infection -Lyme and Anaplasmosis/Babesiosis tests negative -f/u outpatient for further evaluation #Hypertension: Plan: Chronic. Mildly hypertensive in the ER. -Continue Amlodipine -Hold Chlorthalidone in setting of hyponatremia #Atrial fibrillation: Plan: Chronic. Rate controlled. Pacer in place -Continue Eliquis anticoagulation Total Time Total Time Spent Total Time Spent (In Minutes): <30 Discharge Plan Discharge Items Patient Disposition: Home - Self-Care Reason For Visit: CONFUSION, WEAKNESS Discharge Diagnosis: Altered mental status. Condition on Discharge: Good Activity: Resume your previous activity Non-emergency contact: Primary Care Provider Call non-emergency contact if: you have any medication questions and your symptoms worsen Follow-up/Referrals: Dalila Nelson DO [Primary Care Provider] - Estelle Tijerina DO [Resident] - Diet: Regular Ambulatory Orders: Complete Blood Count with Diff (Routine) Timeframe: 3 Days Location: Determined by Patient Ordered By: Estelle Tijerina Comprehensive Metabolic Panel (Routine) Timeframe: 3 Days Location: Determined by Patient Ordered By: Estelle Tijerina Addtl Attending Provider Instructions: You were admitted for altered mental status. You were treated with fluids. Your symptoms have improved, and we feel it is safe for you to return home. We noticed in your labs taken at the hospital that your sodium was low (128 in the hospital, goal of 135-145). Continue to keep hydrated and follow-up with a primary care provider in 1 week. You are to get labs (03/14/23) of this week so your provider can see how your sodium levels are doing when you follow- up. Medications: Your medication list has been reviewed and reconciled upon discharge to ensure accuracy and continuity of care. An updated list of all your medications is included with your hospital discharge paperwork. Please review this list closely, and make note of any changes. You are to STOP taking your chlorthalidone until you follow-up with a provider in office. In the meantime, please check your blood pressure 2-3 times a day and record it to take to your appointment. If you have any issues filling these prescriptions, please call [phone] and ask to leave a message for Dr. Tijerina. Take your medications as instructed; do not skip a dose of your medicines. Make sure all of your doctors know every medicine you are taking (including [id number]-fcrrtro medicines, vitamins, and supplements). Call your primary care provider before taking any new medicines (including over- the-counter medicines, vitamins, and supplements), because some of these may interact with your current medications, or may make your symptoms worse. Tell your primary care provider if you cannot afford your medications. Activity: You can do normal everyday activities as your body allows. Take rest breaks if you feel tired. Do not overexert. Stop activity if you have pain, shortness of breath or feel dizzy. Follow-up appointments: You will have a follow-up appointment on Saturday03/19/23 2:25pm with Dr. Fontenot at [facility] at [address] [place] [address], [address], [place] [address] (the building in front of the hospital). Please arrive 15 minutes before your appointment time. Every time you see your primary care physician, or any other doctor, bring your medication list, a list of questions, and your recent weights. CONTACT YOUR PRIMARY CARE PROVIDER if you experience any of the following: Shortness of breath or difficulty breathing Swelling of your feet, ankles, hands or abdomen Feeling tired with normal activity or experiencing dizziness or fainting Difficulty following your treatment plan, or difficulty taking medications CALL 911 OR GO TO THE EMERGENCY DEPARTMENT if you experience any of the following: Severe abdominal pain or nausea/vomiting Severe chest pain, or chest pain that radiates (moves) to your jaw or arm Sudden, severe shortness of breath or difficulty breathing Thank you for allowing us to participate in your care. Pending Studies at Discharge: No Stand-Alone Forms: [facility] Medications and DC Order Prescriptions: Continued latanoprost [Xalatan] 0.005 % drops 1 drp OPB HS Zyrtec 10 mg Capsule 10 mg PO HS Eliquis 2.5 mg tablet 2.5 mg PO BID cholecalciferol (vitamin D3) 1,000 unit Tablet 1,000 unit PO BID acetaminophen 500 mg Tablet 1,000 mg PO TID aloe vera Gel 1 applic TOPICAL UD PRN (Reason: neuropathy area) sodium chloride 0.9 % Solution 1 ml INTRANASAL Q30M PRN (Reason: dry nose) ketotifen fumarate [[place]away] 0.025 % (0.035 %) Drops 1 drp OPB Q8H PRN (Reason: Allergy Symptoms) amlodipine 5 mg tablet 5 mg PO HS fluticasone propionate 50 mcg/actuation [place],Suspension 1 spray INTRANASAL DAILY Rx Instructions: administer into each nostril amlodipine 2.5 mg tablet 2.5 mg PO DAILY Discontinued chlorthalidone 25 mg tablet 25 mg PO .Q48HRS Discharge Orders: Discharge Order (Routine); Ordered 03/11/23 Ordered By: Estelle Tijerina Admission Data Admit Date/Time: 03/11/23 01:52 Attending Provider: Arnel Hinojosa Admit Provider: Lynne Cm Primary Care Provider: Dalila Nelson Other Providers: Lynne Cm Other Interventions: Discharge Summary Assessment (RN) Last Done: 03/11/23 14:45 Supervising Physician Co-Signing Physician Notes I personally examined the patient and verified all garduno points of history and exam, discussed case, and agree with decision making with Dr Tijerina feeling better would like to go home. resident physician was able to connect with family for update vitals noted nad heent nc at mmm breathing unlabored no accessory muscles good effort skin no rashes no pallor or icterus. stable gait AMS/delirium - dehydration/hyponatremia - likely thiazide induced. safe/stable for home, hold thiazide, follow up as outpt otherwise as above Resident Activity Tracking Resident Involvement: Resident Care Provided Care Provided: Adult Hospital Medicine
--- NOTE | 2023-03-11 14:13 | Electrocardiogram Report ---
Test Reason : Blood Pressure : / mmHG Vent. Rate : 065 BPM Atrial Rate : 064 BPM P-R Int : 000 ms QRS Dur : 160 ms QT Int : 484 ms P-R-T Axes : 000 -75 082 degrees QTc Int : 503 ms Ventricular-paced rhythm Abnormal ECG When compared with ECG of 27-SEP-2022 08:11, No significant change was found Confirmed by Tanmay Moncada ([id number]) on 03/11/2023 2:12:48 PM Referred By: REFERRED SELF Confirmed By:Tanmay Moncada
--- NOTE | 2023-03-11 17:31 | Billing Data ---
Date of Service March 11, 2023 Coding Level of Care Code 99235 IN/OBS DISCH 30 MIN/LESS
[2023-03-11] MEDS ORDERED: LATANOPROST 0.005% OP SOLN 2.5 ML BTL OPB SCH (21:00)
== END 2023-03-11 15:01 | disposition home or self-care (01) ==
LOC: ED 21:55 → EDINP 03-11 01:52 → SUATTDRO 03-11 01:52 → INTOOBSV 03-11 01:52 → EDINP 03-11 02:20

== ENCOUNTER 2023-03-12 19:25 | Inpatient (IN) ==
[2023-03-12 20:36] LABS: Hematocrit (blood only) 40.5 % (37.0-47.0); Mean Corpuscular Hemoglobin 33.9 pg (25.0-34.0); Mean Corpuscular Volume 91.4 fL (80.0-100.0); Mean Platelet Volume 10.6 fL (9.4-12.4); Platelet Count 127 K/uL (130-400); Red Blood Count 4.43 M/uL (4.20-5.40); White Blood Count 9.15 K/ul (4.8-10.8)
[2023-03-12 20:48] LABS: Appearance Urine Clear (Clear); Bilirubin Urine Negative (Negative); Blood Urine Negative (Negative); Color Urine Yellow; Glucose Urine UA Negative (Negative); Ketones Urine Negative (Negative); Leukocyte Esterase Urine Negative (Negative); Nitrite Urine Negative (Negative); Protein Urine Negative (Negative); Specific Gravity Urine 1.005 (1.000-1.030); Urobilinogen Urine Negative (Negative); pH Urine 7.5 (4.5-7.5)
[2023-03-12 21:05] LABS: Partial Thromboplastin Time 28.4 Seconds (21.0-31.0); Prothrombin Time 11.3 Seconds (9.0-12.0)
[2023-03-12 21:17] LABS: Alanine Aminotransferase 18 U/L (7-52); Albumin Globulin Ratio 1.9 (0.9-2); Albumin Level 4.5 gm/dl (3.4-5.0); Alkaline Phosphatase 51 U/L (34-104); Anion Gap 9 (3-11); Bilirubin,Total 1.9 mg/dl (0.2-1.0); Blood Urea Nitrogen 17 mg/dl (6-23); Calcium 9.6 mg/dl (8.6-10.3); Carbon Dioxide 25 mmol/L (21-32); Chloride 85 mmol/L (98-107); Creatinine Clr Calc Pharmacy 65.2 ml/min; Est GFR (African American) 95.5 ml/min; Est GFR (Non-African American) 82.4 ml/min; Globulin 2.4 gm/dl (2.5-4.0); Glucose 87 mg/dl (70-99(Fasting)); Magnesium 1.9 mg/dl (1.7-2.4); Sodium 119 mmol/L (136-145); Total Protein 6.9 gm/dl (6.0-8.3)
--- NOTE | 2023-03-12 21:17 | CT Scan Report ---
Exam(s): CT HEAD Without Contrast EXAM: CT Head Without Intravenous Contrast CLINICAL HISTORY: Reason for exam: confusion. TECHNIQUE: Axial computed tomography images of the head/brain without intravenous contrast. CTDI is 36.43 mGy and DLP is 625.8 mGy-cm. Automated exposure control was utilized for the study. A dose lowering technique was utilized adhering to the principles of ALARA. COMPARISON: 03/10/2023 FINDINGS: Brain: Moderate periventricular white matter changes, likely related to microangiopathy. No hemorrhage. Ventricles: Unremarkable. No ventriculomegaly. Bones/joints: Unremarkable. No acute fracture. Soft tissues: Unremarkable. Sinuses: Unremarkable as visualized. No acute sinusitis. Mastoid air cells: Unremarkable as visualized. No mastoid effusion. IMPRESSION: Moderate periventricular white matter changes, likely related to microangiopathy. Electronically signed by: Colin Charles M.D. 03/12/23 21:15 PM
[2023-03-12] MEDS ORDERED: SODIUM CHLORIDE 0.9% 1000ML 1,000 ML IV ONE (21:40)
--- NOTE | 2023-03-12 21:48 | Emergency Department Note ---
Impression & Plan Hyponatremia, Acute confusion, Hypokalemia ED Provider Note NAME: JAKE DAVIES AGE: 83 SEX: F ARRIVES VIA: Walk-In INFORMANT: Patient ED PROVIDER(S): Tor Patel MD CHIEF COMPLAINT: Confusion PLAN: Disposition: Admit MEDICAL DECISION MAKING: The patient is a pleasant 83-year-old woman with a past medical history of hypertension, atrial fibrillation on Eliquis who presents to the emergency department via walk-in, accompanied by her daughter for recurrence of confusion today in the setting of being admitted to this facility from 03/10-03/11 where symptoms were attributed to dehydration and hyponatremia to 128 in the setting of having a flare of her IBS where she had self-limited diarrhea. She did have CT of the head and CT of the head and neck performed on her presentation and these were negative for ICH, ischemia or severe narrowing or occlusion of large vessels. On her discharge her chlorthalidone was discontinued until scheduled follow-up later this week. However while initially doing well after discharge the patient's daughter checked on her this afternoon and found her to be again confused. They deny any fevers, cough, congestion, chest pain or shortness of breath. Of note, the patient did arrive to emergency department during time of high volume, acuity and prolonged emergency department waiting times. Critical pathways initiated from triage. On my evaluation the patient is in no acute distress, afebrile with blood pressure 150s/70s and vital signs otherwise stable. She appears clinically dry. She exhibits mild confusion but is alert to self and place. She has no focal extremity weakness or sensory deficits. EKG is paced without overt acute ischemia. Chest x-ray negative for acute cardiopulmonary process per my preliminary review. WBC, H/H within normal limits. Platelets 127K similar to prior nonspecific. Ch emistry without metabolic acidosis. Sodium is 119 decreased from discharge 128. BUN/creatinine> 20 consistent with patient's clinically dry appearance. Electrolytes otherwise unremarkable. Total 1.9, similar to prior and LFTs otherwise normal. UA without convincing evidence of infection. CT of the head without contrast negative for acute normalities. Serum, urine osmolalities and urine sodium are pending. Values on her recent admission were not suggestive of SIADH. Treatment initiated with IV fluid hydration. Dr. Dhaliwal, [facility] hospitalist, to evaluate the patient for admission. Triage Nursing notes reviewed and agree them. Prior/outside medical records reviewed Vital Signs: reviewed Differential diagnosis: Infection, hypoglycemia, electrolyte abnormalities, overdose, toxicologic, cardiac sources, intracerebral event, neurologic, trauma, as well as other pathologies. ER treatment provided: See below. Diagnostics interpreted by me: ECG: Ventricular paced rhythm, 65 bpm, no ectopy, no overt acute ischemia. Cardiac Monitoring: An order for continuous cardiac monitoring was placed and demonstrated ventricular paced rhythm, 65 bpm, no ectopy. Laboratory studies: See below Imaging studies: See below Consultation(s): Dr. Dhaliwal, [facility] hospitalist HPI: The patient is a pleasant 83-year-old woman with a past medical history of hypertension, atrial fibrillation on Eliquis who presents to the emergency department via walk-in, accompanied by her daughter for recurrence of confusion today in the setting of being admitted to this facility from 03/10-03/11 where symptoms were attributed to dehydration and hyponatremia to 128 in the setting of having a flare of her IBS where she had self-limited diarrhea. She did have CT of the head and CT of the head and neck performed on her presentation and these were negative for ICH, ischemia or severe narrowing or occlusion of large vessels. On her discharge her chlorthalidone was discontinued until scheduled follow-up later this week. However while initially doing well after discharge the patient's daughter checked on her this afternoon and found her to be again confused. They deny any fevers, cough, congestion, chest pain or shortness of breath. ROS: See above HPI for pertinent positives & negatives. A total of 10 systems reviewed and were otherwise negative. VITALS:See Below PHYSICAL EXAMINATION: GENERAL: Awake, alert, fatigued-appearing, in no distress HENT: Normocephalic, atraumatic. Oropharynx with dry mucous membranes and otherwise unremarkable. EYES: Normal conjunctiva. Sclera non-icteric. NECK: Supple. No nuchal rigidity. FROM. No JVD. RESPIRATORY: Clear to auscultation. CARDIAC: Regular rate, normal rhythm. Extremities warm and well perfused. Pulses equal. ABDOMEN: Soft, non-distended. No tenderness to palpation. No rebound or guardin g. No masses. RECTAL: Deferred. MUSCULOSKELETAL: Chest examination reveals no tenderness. The back is symmetrical on inspection without obvious abnormality. There is no CVA tenderness to palpation. No joint edema. LOWER EXTREMITIES: Calves are equal size bilaterally and non-tender. No edema. No discoloration. NEURO: Mildly confused but alert to self, place and situation. 5/5 strength and SILT x 4 extremities. Cerebellar function intact including [id number], alternating palms, [id number]. SKIN: No rash or jaundice noted. ED COURSE: Critical Care: I have personally spent greater than 35 minutes of critical care time in the direct management of this patient. This includes bedside care, interpretation of diagnostic studies, and testing, discussion with consultants, patient, and family members, and other required patient management activities. This 35 minutes is in excess of all separately billable procedures. Tor Patel MD Past Med/Surg History Medical History Atrial fibrillation Cluster headache Hypertension Irritable bowel syndrome Pacemaker Surgical History H/O prior ablation treatment History of hysterectomy History of mastectomy History of parathyroidectomy Hx of cholecystectomy Status post ablation of atrial fibrillation Family History Daughter Asthma Son Hearing loss Mother Lung disease Father Heart disease Other Hypertension Social History Smoking Status: Unknown if ever smoked Second Hand Exposure: No; Do You Dip or Chew Tobacco: No; Hx Alcohol Use: No Hx Substance Use: No Preferred Language: Senegalese Communication Ability: Effective Special Events Planner Required: No Beliefs That Will Affect Care: None Current Living Situation: Family Current Living Situation Comment: lives at home with 26 year old grandson Feels Safe at Home: Yes Assistive Devices: Cane, Denture - Upper, Denture - Lower and Glasses Allergies Allergies Allergy/AdvReac Type Severity Reaction Status Date / Time cephalexin Allergy Severe Difficulty Verified 03/12/23 22:00 Breathing heparin Allergy Severe Decreased Verified 03/12/23 22:00 WBC count ciprofloxacin Allergy Unknown ? UNSURE Verified 03/12/23 22:04 OF SIDE EFFECT/LEG PAIN? lactose Allergy Unknown unknown Verified 03/12/23 22:00 nortriptyline Allergy Unknown hyperactivi Verified 03/12/23 22:00 ty blue dye AdvReac Severe TACHYCARDIA Verified 03/12/23 22:00 duloxetine AdvReac Severe TACHYCARDIA Verified 03/12/23 22:00 dextromethorphan AdvReac Intermediate GI SYMPTOMS Verified 03/12/23 22:02 famotidine AdvReac Intermediate afib and Verified 03/12/23 22:02 confusion guaifenesin AdvReac Intermediate GI SYMPTOMS Verified 03/12/23 22:02 pantoprazole AdvReac Intermediate leg pain Verified 03/12/23 22:02 ranitidine AdvReac Intermediate GI SYMPTOMS Verified 03/12/23 22:02 yellow dye AdvReac Intermediate GI SYMPTOMS Verified 03/12/23 22:02 Home Meds Home Medications Medication Instructions Recorded Confirmed cholecalciferol (vitamin D3) 25 1,000 unit PO BID 06/13/18 03/12/23 mcg (1,000 unit) tablet apixaban 2.5 mg tablet (Eliquis) 2.5 mg PO BID 05/16/19 03/12/23 cetirizine 10 mg capsule (Zyrtec) 10 mg PO HS 05/16/19 03/12/23 latanoprost 0.005 % eye drops 1 drp OPB HS 05/16/19 03/12/23 (Xalatan) acetaminophen 500 mg tablet 1,000 mg PO TID 08/04/21 03/12/23 aloe vera 1 applic topical UD PRN neuropathy 08/04/21 03/12/23 area sodium chloride 0.9 % nasal 1 ml intranasal Q30M PRN dry nose 08/04/21 03/12/23 solution amlodipine 5 mg tablet 5 mg PO QPM 05/22/22 03/12/23 fluticasone propionate 50 1 spray intranasal DAILY 03/12/23 03/12/23 mcg/actuation nasal spray,suspension melatonin 1 mg chewable tablet 1 mg PO HS 03/12/23 03/12/23 Results & Data (ED) Vital Signs Vital Signs - 24 hr 03/12/23 19:26 03/12/23 20:55 03/12/23 20:55 Temperature 36.7 C Temperature Source Temporal Artery Scan Pulse Rate 88 Pulse Rate [Radial] 65 Pulse Rate from SpO2 Sensor Pulse Rhythm [Radial] Regular Pulse Strength [Radial] Normal Respiratory Rate 16 18 Respiratory Effort / Characteristics Non-Labored Spontaneous Respiratory Depth Normal Respiratory Pattern Regular Blood Pressure 150/74 H Blood Pressure [Left Arm] 153/79 H Blood Pressure Mean 99 Blood Pressure Mean [Left Arm] 103 Pulse Oximetry 98 100 Oxygen Delivery Method Room Air Room Air Room Air Sepsis Recent Fever Within 48 Hours No Sepsis New/Unexplained Change in Mental Status N/A Sepsis Action Taken by Nursing No Action Required 03/12/23 20:55 03/12/23 21:16 03/12/23 21:05 Temperature Temperature Source Pulse Rate 65 65 Pulse Rate [Radial] Pulse Rate from SpO2 Sensor 65 Pulse Rhythm [Radial] Pulse Strength [Radial] Respiratory Rate 15 Respiratory Effort / Characteristics Respiratory Depth Respiratory Pattern Blood Pressure Blood Pressure [Left Arm] Blood Pressure Mean Blood Pressure Mean [Left Arm] Pulse Oximetry 100 100 Oxygen Delivery Method Room Air Sepsis Recent Fever Within 48 Hours Sepsis New/Unexplained Change in Mental Status Sepsis Action Taken by Nursing 03/12/23 21:30 03/12/23 22:00 03/12/23 22:30 Temperature Temperature Source Pulse Rate 71 65 65 Pulse Rate [Radial] Pulse Rate from SpO2 Sensor 70 65 66 Pulse Rhythm [Radial] Pulse Strength [Radial] Respiratory Rate 22 19 28 H Respiratory Effort / Characteristics Respiratory Depth Respiratory Pattern Blood Pressure 150/74 H 150/77 H 152/85 H Blood Pressure [Left Arm] Blood Pressure Mean 99 101 107 Blood Pressure Mean [Left Arm] Pulse Oximetry 99 99 94 Oxygen Delivery Method Sepsis Recent Fever Within 48 Hours Sepsis New/Unexplained Change in Mental Status Sepsis Action Taken by Nursing Laboratory Data Attestation: I reviewed the patient's lab results. 03/12/23 20:16 03/12/23 20:16 Lab Results 03/12/23 03/12/23 03/12/23 Range/Units 20:03 20:03 20:03 WBC (4.8-10.8) K/ul RBC (4.20-5.40) M/uL Hgb (12.0-16.0) g/dl Hct (37.0-47.0) % MCV (80.0-100.0) fL MCH (25.0-34.0) pg MCHC (32.0-36.0) g/dL RDW Std Deviation (36.4-46.3) fL RDW Coeff of Kyree (11.5-14.5) % Plt Count (130-400) K/uL MPV (9.4-12.4) fL PT (9.0-12.0) Seconds INR (0.9-1.1) APTT (21.0-31.0) Seconds PTT Ratio Sodium (136-145) mmol/L Potassium Chloride (98-107) mmol/L Carbon Dioxide (21-32) mmol/L Anion Gap (3-11) BUN (6-23) mg/dl Creatinine (0.6-1.2) mg/dl Est Cr Clr Drug Dosing ml/min Est GFR ( Amer) ml/min Est GFR (Non-Af Amer) ml/min BUN/Creatinine Ratio (10-20) Glucose (70-99(Fasting)) mg/dl Calcium (8.6-10.3) mg/dl Magnesium (1.7-2.4) mg/dl Total Bilirubin (0.2-1.0) mg/dl AST ALT (7-52) U/L Alkaline Phosphatase (34-104) U/L Total Protein (6.0-8.3) gm/dl Albumin (3.4-5.0) gm/dl Globulin (2.5-4.0) gm/dl Albumin/Globulin Ratio (0.9-2) Urine Color Yellow Urine Appearance Clear (Clear) Urine pH 7.5 (4.5-7.5) Ur Specific [place] 1.005 (1.000-1.030) Urine Protein Negative (Negative) Urine Glucose (UA) Negative (Negative) Urine Ketones Negative (Negative) Urine Blood Negative (Negative) Urine Nitrite Negative (Negative) Urine Bilirubin Negative (Negative) Urine Urobilinogen Negative (Negative) Ur Leukocyte Esterase Negative (Negative) Urine Osmolality 135 L (500-800) mOsm/kg Ur Random Sodium 21 mmol/L 03/12/23 03/12/23 03/12/23 Range/Units 20:16 20:16 20:16 WBC 9.15 (4.8-10.8) K/ul RBC 4.43 (4.20-5.40) M/uL Hgb 15.0 (12.0-16.0) g/dl Hct 40.5 (37.0-47.0) % MCV 91.4 (80.0-100.0) fL MCH 33.9 (25.0-34.0) pg MCHC 37.0 H (32.0-36.0) g/dL RDW Std Deviation 47.0 H (36.4-46.3) fL RDW Coeff of Kyree 14.0 (11.5-14.5) % Plt Count 127 L (130-400) K/uL MPV 10.6 (9.4-12.4) fL PT 11.3 (9.0-12.0) Seconds INR 1.0 (0.9-1.1) APTT 28.4 (21.0-31.0) Seconds PTT Ratio 1.0 Sodium 119 L* D (136-145) mmol/L Potassium TNP Chloride 85 L (98-107) mmol/L Carbon Dioxide 25 (21-32) mmol/L Anion Gap 9 (3-11) BUN 17 (6-23) mg/dl Creatinine 0.63 (0.6-1.2) mg/dl Est Cr Clr Drug Dosing 65.2 ml/min Est GFR ( Amer) 95.5 ml/min Est GFR (Non-Af Amer) 82.4 ml/min BUN/Creatinine Ratio 27.0 H (10-20) Glucose 87 (70-99(Fasting)) mg/dl Calcium 9.6 (8.6-10.3) mg/dl Magnesium 1.9 (1.7-2.4) mg/dl Total Bilirubin 1.9 H (0.2-1.0) mg/dl AST TNP ALT 18 (7-52) U/L Alkaline Phosphatase 51 (34-104) U/L Total Protein 6.9 (6.0-8.3) gm/dl Albumin 4.5 (3.4-5.0) gm/dl Globulin 2.4 L (2.5-4.0) gm/dl Albumin/Globulin Ratio 1.9 (0.9-2) Urine Color Urine Appearance (Clear) Urine pH (4.5-7.5) Ur Specific [place] (1.000-1.030) Urine Protein (Negative) Urine Glucose (UA) (Negative) Urine Ketones (Negative) Urine Blood (Negative) Urine Nitrite (Negative) Urine Bilirubin (Negative) Urine Urobilinogen (Negative) Ur Leukocyte Esterase (Negative) Urine Osmolality (500-800) mOsm/kg Ur Random Sodium mmol/L 03/12/23 Range/Units 21:34 WBC (4.8-10.8) K/ul RBC (4.20-5.40) M/uL Hgb (12.0-16.0) g/dl Hct (37.0-47.0) % MCV (80.0-100.0) fL MCH (25.0-34.0) pg MCHC (32.0-36.0) g/dL RDW Std Deviation (36.4-46.3) fL RDW Coeff of Kyree (11.5-14.5) % Plt Count (130-400) K/uL MPV (9.4-12.4) fL PT (9.0-12.0) Seconds INR (0.9-1.1) APTT (21.0-31.0) Seconds PTT Ratio Sodium (136-145) mmol/L Potassium 3.4 L Chloride (98-107) mmol/L Carbon Dioxide (21-32) mmol/L Anion Gap (3-11) BUN (6-23) mg/dl Creatinine (0.6-1.2) mg/dl Est Cr Clr Drug Dosing ml/min Est GFR ( Amer) ml/min Est GFR (Non-Af Amer) ml/min BUN/Creatinine Ratio (10-20) Glucose (70-99(Fasting)) mg/dl Calcium (8.6-10.3) mg/dl Magnesium (1.7-2.4) mg/dl Total Bilirubin (0.2-1.0) mg/dl AST 18 ALT (7-52) U/L Alkaline Phosphatase (34-104) U/L Total Protein (6.0-8.3) gm/dl Albumin (3.4-5.0) gm/dl Globulin (2.5-4.0) gm/dl Albumin/Globulin Ratio (0.9-2) Urine Color Urine Appearance (Clear) Urine pH (4.5-7.5) Ur Specific [place] (1.000-1.030) Urine Protein (Negative) Urine Glucose (UA) (Negative) Urine Ketones (Negative) Urine Blood (Negative) Urine Nitrite (Negative) Urine Bilirubin (Negative) Urine Urobilinogen (Negative) Ur Leukocyte Esterase (Negative) Urine Osmolality (500-800) mOsm/kg Ur Random Sodium mmol/L Administered Medications Sodium Chloride (Sodium Chloride 1 Gm Tablet) 1 gm PO BID [facility] Stop: 04/12/23 00:03 Last Admin: 03/13/23 01:25 Dose: 1 gm Documented By: [facility] Discontinued Medications Acetaminophen (Acetaminophen 500 Mg Tab) 1,000 mg PO NOW STA Stop: 03/13/23 01:16 Last Admin: 03/13/23 01:26 Dose: 1,000 mg Documented By: [facility] Sodium Chloride (Nss 1000ml) 1,000 mls @ 999 mls/hr IV .Q1H1M ONE Stop: 03/12/23 22:40 Last Infusion: 03/12/23 23:01 Dose: 0 mls/hr Documented By: Admin: 03/12/23 21:57 Dose: 999 mls/hr Documented By: MARCOS Melatonin (Melatonin 3 Mg Tab) 3 mg PO NOW STA Stop: 03/13/23 01:16 Last Admin: 03/13/23 01:24 Dose: 3 mg Documented By: [facility] Imaging Data Radiologist's Impression: Head CT 03/12/23 19:31 Exam(s): CT HEAD Without Contrast EXAM: CT Head Without Intravenous Contrast CLINICAL HISTORY: Reason for exam: confusion. TECHNIQUE: Axial computed tomography images of the head/brain without intravenous contrast. CTDI is 36.43 mGy and DLP is 625.8 mGy-cm. Automated exposure control was utilized for the study. A dose lowering technique was utilized adhering to the principles of ALARA. COMPARISON: 03/10/2023 FINDINGS: Brain: Moderate periventricular white matter changes, likely related to microangiopathy. No hemorrhage. Ventricles: Unremarkable. No ventriculomegaly. Bones/joints: Unremarkable. No acute fracture. Soft tissues: Unremarkable. Sinuses: Unremarkable as visualized. No acute sinusitis. Mastoid air cells: Unremarkable as visualized. No mastoid effusion. IMPRESSION: Moderate periventricular white matter changes, likely related to microangiopathy. Electronically signed by: Colin Charles M.D. 03/12/23 21:15 PM Abdomen/Pelvis CT 03/12/23 22:45 Exam(s): CT ABDOMEN + PELVIS Without Contrast EXAM: CT Abdomen and Pelvis Without Intravenous Contrast CLINICAL HISTORY: Reason for exam: RUQ and generalized abd pain,. TECHNIQUE: Axial computed tomography images of the abdomen and pelvis without intravenous contrast. CTDI is 13.1 mGy and DLP is 570.35 mGy-cm. Automated exposure control was utilized for the study. A dose lowering technique was utilized adhering to the principles of ALARA. COMPARISON: 01/30/2020 FINDINGS: Lung bases: Peripheral scarring in the lung bases with small centrilobular nodular opacities. No consolidation. ABDOMEN: Liver: 0.5 cm simple cyst in the posterior right lobe of the liver. Gallbladder and bile ducts: Gallbladder has been removed. No ductal dilation. Pancreas: Unremarkable. No ductal dilation. Spleen: Unremarkable. No splenomegaly. Adrenals: Unremarkable. No mass. Kidneys and ureters: Mild right hydronephrosis and hydroureter without evidence of obstructing stone. Simple bilateral renal cysts measuring up to 1.4 cm in the mid right kidney. No further workup is required. Stomach and bowel: Unremarkable. No obstruction. No mucosal thickening. PELVIS: Appendix: No findings to suggest acute appendicitis. Bladder: Unremarkable. No stones. Reproductive: Unremarkable as visualized. ABDOMEN and PELVIS: Intraperitoneal space: Unremarkable. No free air. No significant fluid collection. Bones/joints: No acute fracture. No dislocation. Soft tissues: Unremarkable. Vasculature: Unremarkable. No abdominal aortic aneurysm. Lymph nodes: Unremarkable. No enlarged lymph nodes. IMPRESSION: No evidence of acute abdominal or pelvic process. Mild right hydronephrosis and hydroureter without evidence of obstructing stone. Peripheral scarring in the lung bases with centrilobular nodular opacities. Electronically signed by: Colin Charles M.D. 03/13/23 01:03 AM Discharge Plan Visit Data Chief Complaint: Confusion Stated Complaint: CONFUSION, NAUSEA, FATIGUE ED Provider: Tor Patel Discharge Problem: Hyponatremia, Acute confusion, Hypokalemia Patient Disposition: Admitted As Inpatient Discharge Instructions Interventions: ED Discharge Assessment Last Done: 03/12/23 23:39
[2023-03-12 22:09] LABS: Potassium 3.4 mmol/L (3.5-5.1)
--- NOTE | 2023-03-12 23:12 | History & Physical Report ---
Date of Service March 12, 2023 Assessment & Plan (1) Hyponatremia: (2) Acute alteration in mental status: (3) Chronic anticoagulation: (4) Pacemaker: (5) Hypertension: (6) Atrial fibrillation: (7) Thrombocytopenia: (8) Irritable bowel syndrome: (9) Status post ablation of atrial fibrillation: Plan Hyponatremia- Sodium 119 on admission, with 24 hours ago it was 128 Patient does report drinking large volumes of water to try to help with how her stomach feels Place on fluid restriction 1200 mL daily She is already been given 1 L normal saline from ED, will hold any further IV fluids Follow serial renal function panel and magnesium levels Serum osmolality and urine osmolality still pending For a brief interval start sodium chloride 1 g p.o. twice daily Irritable bowel syndrome/gluten sensitive enteropathy/lactose intolerance- The origin of her problems with sodium being low, having too much fluid intake, is secondary to her GI issues She has been trying to restrict lactose trying to restrict gluten. She does complain of right upper quadrant pain, but does have history of cholecystectomy We will order CT abdomen pelvis to further evaluate pain She may have an issue with exocrine pancreatic insufficiency, and could deserve a trial of pancreatic enzymes before meals Atrial fibrillation/hypertension/pacemaker status- Continue amlodipine and Eliquis History of Present Illness Chief Complaint: The patient is brought to the emergency department due to worsening confusion after being discharged from the hospital on 03/11/2023 Primary Care Provider: Dalila Nleson DO The patient is a 83-year-old female with a past medical history including hyponatremia, thrombocytopenia, chronic anticoagulation with Eliquis, urine tract infection, pacemaker status, cluster headaches, atrial fibrillation with RVR. The patient was most recently mated to [facility] from 03/11 and discharged same day, after being admitted for low sodium. The patient has had issues with irritable bowel, lactose intolerance, gluten sensitive enteropathy for a while, but more of an issue recently, in particular points toward discom fort in her right upper lateral quadrant areas. She had been admitted with a sodium of 128 on March 11, and today has a sodium of 119. She has held her chlorthalidone as directed upon discharge. Upon questioning, she does report drinking a large amount of water since discharge because her stomach has not been feeling well. Allergies Allergy/AdvReac Type Severity Reaction Status Date / Time cephalexin Allergy Severe Difficulty Verified 03/12/23 22:00 Breathing heparin Allergy Severe Decreased Verified 03/12/23 22:00 WBC count ciprofloxacin Allergy Unknown ? UNSURE Verified 03/12/23 22:04 OF SIDE EFFECT/LEG PAIN? lactose Allergy Unknown unknown Verified 03/12/23 22:00 nortriptyline Allergy Unknown hyperactivi Verified 03/12/23 22:00 ty blue dye AdvReac Severe TACHYCARDIA Verified 03/12/23 22:00 duloxetine AdvReac Severe TACHYCARDIA Verified 03/12/23 22:00 dextromethorphan AdvReac Intermediate GI SYMPTOMS Verified 03/12/23 22:02 famotidine AdvReac Intermediate afib and Verified 03/12/23 22:02 confusion guaifenesin AdvReac Intermediate GI SYMPTOMS Verified 03/12/23 22:02 pantoprazole AdvReac Intermediate leg pain Verified 03/12/23 22:02 ranitidine AdvReac Intermediate GI SYMPTOMS Verified 03/12/23 22:02 yellow dye AdvReac Intermediate GI SYMPTOMS Verified 03/12/23 22:02 Home Medications Medication Instructions Recorded Confirmed Type cholecalciferol (vitamin D3) 25 1,000 unit PO BID 06/13/18 03/12/23 History mcg (1,000 unit) tablet apixaban 2.5 mg tablet (Eliquis) 2.5 mg PO BID 05/16/19 03/12/23 History cetirizine 10 mg capsule (Zyrtec) 10 mg PO HS 05/16/19 03/12/23 History latanoprost 0.005 % eye drops 1 drp OPB HS 05/16/19 03/12/23 History (Xalatan) acetaminophen 500 mg tablet 1,000 mg PO TID 08/04/21 03/12/23 History aloe vera 1 applic topical UD PRN neuropathy 08/04/21 03/12/23 History area sodium chloride 0.9 % nasal 1 ml intranasal Q30M PRN dry nose 08/04/21 03/12/23 History solution amlodipine 5 mg tablet 5 mg PO QPM 05/22/22 03/12/23 History fluticasone propionate 50 1 spray intranasal DAILY 03/12/23 03/12/23 History mcg/actuation nasal spray,suspension melatonin 1 mg chewable tablet 1 mg PO HS 03/12/23 03/12/23 History Past Med/Surg History Medical History (Updated 03/12/23 @ 23:07 by Basil Dhaliwal MD) Atrial fibrillation Cluster headache Hypertension Irritable bowel syndrome Pacemaker Surgical History (Updated 03/12/23 @ 23:07 by Basil Dhaliwal MD) H/O prior ablation treatment History of hysterectomy History of mastectomy History of parathyroidectomy Hx of cholecystectomy Status post ablation of atrial fibrillation Family History Daughter Asthma Son Hearing loss Mother Lung disease Father Heart disease Other Hypertension Social History Smoking Status: Unknown if ever smoked Second Hand Exposure: No; Do You Dip or Chew Tobacco: No; Hx Alcohol Use: No Hx Substance Use: No Preferred Language: Nepalese Communication Ability: Effective Car Stower Required: No Beliefs That Will Affect Care: None Current Living Situation: Alone Current Living Situation Comment: she usually lives alone but her grandson is currently living with her Feels Safe at Home: Yes Assistive Devices: Denture - Upper, Denture - Lower and Glasses Review of Systems Review of Systems: The patient denies chest pain, palpitations, shortness of breath, dyspnea on exertion, cough, lower extremity swelling, sore throat, fevers, chills, sweats, weight change, vomiting, pelvic pain, blood in urine or stool, dysuria, urinary frequency or urgency, loss of consciousness, rash, abnormal bruising or bleeding, imbalance, focal weakness, numbness or tingling in arms or legs, generalized arthralgias or myalgias, back or neck pain, or night sweats. The review of systems is otherwise negative other than for that already noted above, and at least 10 systems have been reviewed. Physical Exam Physical Exam: The patient is awake, looks fatigued and mildly confused, normocephalic and atraumatic, sitting upright in bed and in no acute distress. HEENT--PERRL, EOMI, mucous membranes and oropharynx dry. Neck--supple. No JVD. No bruits. Thyroid normal, trachea midline, no adenopathy. Heart--normal S1 and S2. No murmurs, rubs or gallops. Lungs--clear bilaterally, no respiratory distress, no accessory muscle use. Abdomen--normal bowel sounds and soft. Nontender. Mildly distended and tympanitic Extremities--no cyanosis or clubbing. No edema. Dermatologic--normal skin turgor, normal color, no abnormal lymph nodes, no rash. Neurologic--cranial nerves II through XII grossly intact. Rheumatologic--normal range of motion. Psychiatric--normal affect. Results & Data Results & Data Vital Signs (Past 12 Hours) Vital Signs Temp Pulse Pulse Resp BP BP Pulse Ox 03/12/23 22:00 65 19 150/77 H 99 03/12/23 21:30 71 22 150/74 H 99 03/12/23 21:05 65 15 100 03/12/23 21:16 65 03/12/23 20:55 100 03/12/23 20:55 65 18 153/79 H 100 03/12/23 20:55 03/12/23 19:26 36.7 C 88 16 150/74 H 98 O2 Del Method 03/12/23 22:00 03/12/23 21:30 03/12/23 21:05 03/12/23 21:16 03/12/23 20:55 Room Air 03/12/23 20:55 Room Air 03/12/23 20:55 Room Air 03/12/23 19:26 Room Air Laboratory Results Laboratory Results WBC 9.15 K/ul (4.8-10.8) 03/12/23 20:16 RBC 4.43 M/uL (4.20-5.40) 03/12/23 20:16 Hgb 15.0 g/dl (12.0-16.0) 03/12/23 20:16 Hct 40.5 % (37.0-47.0) 03/12/23 20:16 MCV 91.4 fL (80.0-100.0) 03/12/23 20:16 MCH 33.9 pg (25.0-34.0) 03/12/23 20:16 MCHC 37.0 g/dL (32.0-36.0) H 03/12/23 20:16 RDW Std Deviation 47.0 fL (36.4-46.3) H 03/12/23 20:16 RDW Coeff of Kyree 14.0 % (11.5-14.5) 03/12/23 20:16 Plt Count 127 K/uL (130-400) L 03/12/23 20:16 MPV 10.6 fL (9.4-12.4) 03/12/23 20:16 PT 11.3 Seconds (9.0-12.0) 03/12/23 20:16 INR 1.0 (0.9-1.1) 03/12/23 20:16 APTT 28.4 Seconds (21.0-31.0) 03/12/23 20:16 PTT Ratio 1.0 03/12/23 20:16 Sodium 119 mmol/L (136-145) L* D 03/12/23 20:16 Potassium 3.4 mmol/L (3.5-5.1) L 03/12/23 21:34 Chloride 85 mmol/L (98-107) L 03/12/23 20:16 Carbon Dioxide 25 mmol/L (21-32) 03/12/23 20:16 Anion Gap 9 (3-11) 03/12/23 20:16 BUN 17 mg/dl (6-23) 03/12/23 20:16 Creatinine 0.63 mg/dl (0.6-1.2) 03/12/23 20:16 Est Cr Clr Drug Dosing 65.2 ml/min 03/12/23 20:16 Est GFR ( Amer) 95.5 ml/min 03/12/23 20:16 Est GFR (Non-Af Amer) 82.4 ml/min 03/12/23 20:16 BUN/Creatinine Ratio 27.0 (10-20) H 03/12/23 20:16 Glucose 87 mg/dl (70-99(Fasting)) 03/12/23 20:16 Calcium 9.6 mg/dl (8.6-10.3) 03/12/23 20:16 Magnesium 1.9 mg/dl (1.7-2.4) 03/12/23 20:16 Total Bilirubin 1.9 mg/dl (0.2-1.0) H 03/12/23 20:16 AST 18 U/L (13-39) 03/12/23 21:34 ALT 18 U/L (7-52) 03/12/23 20:16 Alkaline Phosphatase 51 U/L (34-104) 03/12/23 20:16 Total Protein 6.9 gm/dl (6.0-8.3) 03/12/23 20:16 Albumin 4.5 gm/dl (3.4-5.0) 03/12/23 20:16 Globulin 2.4 gm/dl (2.5-4.0) L 03/12/23 20:16 Albumin/Globulin Ratio 1.9 (0.9-2) 03/12/23 20:16 Urine Color Yellow 03/12/23 20: Urine Appearance Clear (Clear) 03/12/23 20: Urine pH 7.5 (4.5-7.5) 03/12/23 20:03 Ur Specific [place] 1.005 (1.000-1.030) 03/12/23 20: Urine Protein Negative (Negative) 03/12/23 20: Urine Glucose (UA) Negative (Negative) 03/12/23 20: Urine Ketones Negative (Negative) 03/12/23 20: Urine Blood Negative (Negative) 03/12/23 20: Urine Nitrite Negative (Negative) 03/12/23 20: Urine Bilirubin Negative (Negative) 03/12/23 20: Urine Urobilinogen Negative (Negative) 03/12/23 20:03 Ur Leukocyte Esterase Negative (Negative) 03/12/23 20: Urine Osmolality 135 mOsm/kg (500-800) L 03/12/23 20: Ur Random Sodium 21 mmol/L 03/12/23 20:[address] 03/12/23 19:31 Exam(s): CT HEAD Without Contrast EXAM: CT Head Without Intravenous Contrast CLINICAL HISTORY: Reason for exam: confusion. TECHNIQUE: Axial computed tomography images of the head/brain without intravenous contrast. CTDI is 36.43 mGy and DLP is 625.8 mGy-cm. Automated exposure control was utilized for the study. A dose lowering technique was utilized adhering to the principles of ALARA. COMPARISON: 03/10/2023 FINDINGS: Brain: Moderate periventricular white matter changes, likely related to microangiopathy. No hemorrhage. Ventricles: Unremarkable. No ventriculomegaly. Bones/joints: Unremarkable. No acute fracture. Soft tissues: Unremarkable. Sinuses: Unremarkable as visualized. No acute sinusitis. Mastoid air cells: Unremarkable as visualized. No mastoid effusion. IMPRESSION: Moderate periventricular white matter changes, likely related to microangiopathy. Electronically signed by: Colin Charles M.D. 03/12/23 21:15 PM Code Status & VTE Plan Code Status Full code VTE Prophylaxis Plan VTE Prophylaxis will be ordered: Yes PG Care Time/CCT Total # of Minutes Spent Total Time Spent with Patient: Total time spent is greater than 50% in coordination of care (as documented) at patient's floor/unit and/or counseling patient: Coding Level of Care Code 34371 INT INP/OBS CARE 3/75MIN Diagnoses Hyponatremia E87.1 Acute alteration in mental status R41.82 Chronic anticoagulation Z79.01 Pacemaker Z95.0 Hypertension I10 Atrial fibrillation I48.91 Thrombocytopenia D69.6 Irritable bowel syndrome K58.9 Status post ablation of atrial fibrillation Z98.890; Z86.79
[2023-03-13] MEDS ORDERED: ONDANSETRON INJ 2 MG/ML 2 ML VIAL IV PRN (00:04)
[2023-03-13] MEDS ORDERED: SODIUM CHLORIDE 0.65% NA SOLN 45 ML (OCEAN) PRN (00:31)
--- NOTE | 2023-03-13 01:03 | CT Scan Report ---
Exam(s): CT ABDOMEN + PELVIS Without Contrast EXAM: CT Abdomen and Pelvis Without Intravenous Contrast CLINICAL HISTORY: Reason for exam: RUQ and generalized abd pain,. TECHNIQUE: Axial computed tomography images of the abdomen and pelvis without intravenous contrast. CTDI is 13.1 mGy and DLP is 570.35 mGy-cm. Automated exposure control was utilized for the study. A dose lowering technique was utilized adhering to the principles of ALARA. COMPARISON: 01/30/2020 FINDINGS: Lung bases: Peripheral scarring in the lung bases with small centrilobular nodular opacities. No consolidation. ABDOMEN: Liver: 0.5 cm simple cyst in the posterior right lobe of the liver. Gallbladder and bile ducts: Gallbladder has been removed. No ductal dilation. Pancreas: Unremarkable. No ductal dilation. Spleen: Unremarkable. No splenomegaly. Adrenals: Unremarkable. No mass. Kidneys and ureters: Mild right hydronephrosis and hydroureter without evidence of obstructing stone. Simple bilateral renal cysts measuring up to 1.4 cm in the mid right kidney. No further workup is required. Stomach and bowel: Unremarkable. No obstruction. No mucosal thickening. PELVIS: Appendix: No findings to suggest acute appendicitis. Bladder: Unremarkable. No stones. Reproductive: Unremarkable as visualized. ABDOMEN and PELVIS: Intraperitoneal space: Unremarkable. No free air. No significant fluid collection. Bones/joints: No acute fracture. No dislocation. Soft tissues: Unremarkable. Vasculature: Unremarkable. No abdominal aortic aneurysm. Lymph nodes: Unremarkable. No enlarged lymph nodes. IMPRESSION: No evidence of acute abdominal or pelvic process. Mild right hydronephrosis and hydroureter without evidence of obstructing stone. Peripheral scarring in the lung bases with centrilobular nodular opacities. Electronically signed by: Colin Charles M.D. 03/13/23 01:03 AM
[2023-03-13] MEDS ORDERED: ACETAMINOPHEN 500 MG TAB PO STA (01:15)
[2023-03-13] MEDS ORDERED: MELATONIN 3 MG TAB PO STA (01:15)
[2023-03-13] MEDS: SODIUM CHLORIDE 1 GM TABLET PO SCH ×2 (01:25→08:20)
[2023-03-13 06:41] LABS: Basophils # (auto) 0.01 K/uL (0-0.2); Basophils % (auto) 0.2 %; Eosinophils # (auto) 0.02 K/uL (0-0.50); Eosinophils % (auto) 0.4 %; Hematocrit (blood only) 40.6 % (37.0-47.0); Hemoglobin 14.9 g/dl (12.0-16.0); Immature Granulocytes # (auto) 0.01 K/uL (0.01-0.20); Immature Granulocytes % (auto) 0.2 %; Lymphocytes # (auto) 1.15 K/uL (1.2-3.4); Lymphocytes % (auto) 20.3 %; Mean Corpuscular Hemoglobin 33.3 pg (25.0-34.0); Mean Corpuscular Hgb Conc 36.7 g/dL (32.0-36.0); Mean Corpuscular Volume 90.8 fL (80.0-100.0); Mean Platelet Volume 10.2 fL (9.4-12.4); Monocytes # (auto) 0.61 K/uL (0.11-0.59); Monocytes % (auto) 10.8 %; Neutrophils # (auto) 3.86 K/uL (1.40-6.50); Neutrophils % (auto) 68.1 %; Platelet Count 118 K/uL (130-400); RDW Coefficient of Variation 13.9 % (11.5-14.5); RDW Standard Deviation 46.5 fL (36.4-46.3); Red Blood Count 4.47 M/uL (4.20-5.40); White Blood Count 5.66 K/ul (4.8-10.8)
[2023-03-13 06:54] LABS: BUN Creatinine Ratio 22.2 (10-20); Calcium 9.3 mg/dl (8.6-10.3); Creatinine Clr Calc Pharmacy 72.6 ml/min; Est GFR (African American) 100.4 ml/min; Est GFR (Non-African American) 86.7 ml/min; Magnesium 1.9 mg/dl (1.7-2.4); Phosphorus 2.8 mg/dl (2.5-4.9); Potassium 3.2 mmol/L (3.5-5.1)
--- NOTE | 2023-03-13 07:25 | Hospitalist Progress Note ---
Date of Service March 13, 2023 Assessment & Plan (1) Hyponatremia: (2) Acute confusion: (3) Hypokalemia: (4) Status post ablation of atrial fibrillation: (5) Irritable bowel syndrome: (6) Pacemaker: Plan Pt is a 83 yo female with a past medical history of a fib on eliquis, pacemaker, IBS, and HTN who presents to the hospital on 03/12/23 for confusion. #Hyponatremia - Na 119 on admission, then 130, - Patient does report drinking large volumes of water when she went home - was given 1 L normal saline from ED, will hold any further IV fluids - Follow serial renal function panel and magnesium levels - Serum osmolality 258, urine osmol 135 - continue on fluid restriction 1200 mL daily #Hypokalemia -K+ 3.2 today, will replete and recheck in the a.m. #Irritable bowel syndrome/gluten sensitive enteropathy/lactose intolerance - She has been trying to restrict lactose trying to restrict gluten. - She does complain of right upper quadrant pain on admission, but does have history of cholecystectomy - CT abd; Mild right hydronephrosis and hydroureter without evidence of an obstructing stone #Atrial fibrillation/hypertension/pacemaker status - Continue amlodipine and Eliquis VTE proph: home eliquis Admission and Anticipated Discharge Date Admission Date: March 12, 2023 Supervising Physician Co-Signing Physician Notes I personally examined the patient and verified all garduno points of history and exam, discussed case, and agree with decision making with Dr Tijerina feeling better and would like to go home. drank ~4L water yesterday. Dr Tijerina updated dtr vitals noted nad heent nc at mmm breathing unlabored no accessory muscles good effort skin no rashes no pallor or icterus recurrent hyponatremiathis time polydipsia mediated. Discussed safe ranges of fluids with patientprobably in the neighborhood of 60-80 ounces a day (she overdrink leading to readmission from metabolic encephalopathy from recurrent hyponatremia, but I wanted to make clear that we did not want to have her fluid restrict so as to end up readmitted yet again for dehydration or renal failure). She expressed a better understanding. 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 Safe/stable for homeresident physician discussed risks and benefits with daughter, basic metabolic panel by the end of the week. Off chlorthalidone inde finitely as well otherwise as above Subjective Pt is a 83 yo female with a past medical history of a fib on eliquis, pacemaker, IBS, and HTN who presents to the hospital on 03/12/23 for confusion. Today, patient states that she thinks her daughter brought her here for a "full physical exam to make sure everything is okay." She states that she feels fine and has no complains. She did note that when she got home she felt like she had not drank enough water at the hospital, so she tried to drink a lot (a few quarts according to her) "just to catch up." Otherwise, no questions or complaints at this time. Review of Systems Review of Systems: Constitutional: denies fever, chills, Cardio: denies chest pain, palpitations Resp: denies shortness of breath, cough GI: denies abdominal pain, nausea, vomiting, Physical Exam Physical Exam: General:Alert and oriented, no acute distress, pleasant female HEENT: Normocephalic, moist oral mucosa, Cardio: Regular rate and rhythm, no murmur, Resp:Lungs clear to auscultation b/l, no wheezes or rhonchi, GI: Soft and nontender, nondistended, bowel sounds active Skin: Warm, pink, dry, Psych: Mood-affect congruence. Results & Data Results & Data Vital Signs (Past 12 Hours) Vital Signs Temp Pulse Pulse Resp BP BP Pulse Ox 03/13/23 00:04 36.8 C 69 12 148/78 H 99 03/13/23 00:04 03/13/23 00:06 36.8 C 69 12 148/78 H 98 03/12/23 23:30 65 27 H 98 03/12/23 23:00 71 22 158/81 H 96 03/12/23 22:30 65 28 H 152/85 H 94 03/12/23 22:00 65 19 150/77 H 99 03/12/23 21:30 71 22 150/74 H 99 03/12/23 21:05 65 15 100 03/12/23 21:16 65 03/12/23 20:55 100 03/12/23 20:55 65 18 153/79 H 100 03/12/23 20:55 03/12/23 19:26 36.7 C 88 16 150/74 H 98 Pulse Ox O2 Del Method O2 Del Method 03/13/23 00:04 Room Air 03/13/23 00:04 99 Room Air 03/13/23 00:06 Room Air 03/12/23 23:30 03/12/23 23:00 03/12/23 22:30 03/12/23 22:00 03/12/23 21:30 03/12/23 21:05 03/12/23 21:16 03/12/23 20:55 Room Air 03/12/23 20:55 Room Air 03/12/23 20:55 Room Air 03/12/23 19:26 Room Air Resident Activity Tracking Resident Involvement: Resident Care Provided Care Provided: Adult Hospital Medicine
--- NOTE | 2023-03-13 07:28 | XRay Report ---
XR chest 1V portable HISTORY: 83 years-old Female stroke symptoms acute strokelike symptoms COMPARISON: 12/25/2022 TECHNIQUE: AP view of the chest FINDINGS: Cardiac silhouette is enlarged. Single lead left subclavian pacer. The patient is rotated and side be nding. No pneumothorax, pleural effusion, airspace consolidation or overt pulmonary edema. Mild left basilar atelectasis versus scarring. Right mastectomy. Mid thoracic levoscoliosis. IMPRESSION: Cardiomegaly without acute process. ACT 112: Negative or not required by law. The above report was generated using voice recognition software. It may contain grammatical, syntax o r spelling errors. Electronically signed by: Emigdio Carrero M.D. 03/13/2023 7:26 AM
[2023-03-13] MEDS ORDERED: POTASSIUM CHLORIDE CRTAB 20 MEQ TABCR PO STA (07:30)
[2023-03-13] MEDS ORDERED: CHOLECALCIFEROL 1,000 UNITS 25 MCG TAB PO SCH (09:00)
[2023-03-13] MEDS ORDERED: APIXABAN 2.5 MG TAB PO SCH (09:00)
[2023-03-13] MEDS ORDERED: ACETAMINOPHEN 500 MG TAB PO SCH (09:00)
[2023-03-13] MEDS ORDERED: FLUTICASONE PROPIONATE NA SPR 16 GM BTL NAE SCH (09:00)
--- NOTE | 2023-03-13 12:17 | Discharge Summary ---
Date of Service March 13, 2023 Admission HPI Per Admitting Provider The patient is a 83-year-old female with a past medical history including hyponatremia, thrombocytopenia, chronic anticoagulation with Eliquis, urine tract infection, pacemaker status, cluster headaches, atrial fibrillation with RVR. The patient was most recently mated to [facility] from 03/11 and discharged same day, after being admitted for low sodium. 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 She had been admitted with a sodium of 128 on March 11, and today has a sodium of 119. She has held her chlorthalidone as directed upon discharge. Upon questioning, she does report drinking a large amount of water since discharge because her stomach has not been feeling well. Admission Exam Per Admitting Provider The patient is awake, looks fatigued and mildly confused, normocephalic and atraumatic, sitting upright in bed and in no acute distress. HEENT--PERRL, EOMI, mucous membranes and oropharynx dry. Neck--supple. No JVD. No bruits. Thyroid normal, trachea midline, no adenopathy. Heart--normal S1 and S2. No murmurs, rubs or gallops. Lungs--clear bilaterally, no respiratory distress, no accessory muscle use. Abdomen--normal bowel sounds and soft. Nontender. Mildly distended and tympanitic Extremities--no cyanosis or clubbing. No edema. Dermatologic--normal skin turgor, normal color, no abnormal lymph nodes, no rash. Neurologic--cranial nerves II through XII grossly intact. Rheumatologic--normal range of motion. Psychiatric--normal affect. Principal Diagnosis Hyponatremia, secondary to polydipsia Discharge Exam General:Alert and oriented, no acute distress, pleasant female HEENT: Normocephalic, moist oral mucosa, Cardio: Regular rate and rhythm, no murmur, Resp:Lungs clear to auscultation b/l, no wheezes or rhonchi, GI: Soft and nontender, nondistended, bowel sounds active Skin: Warm, pink, dry, Psych: Mood-affect congruence. Discharge Data Allergies Allergy/AdvReac Type Severity Reaction Status Date / Time cephalexin Allergy Severe Difficulty Verified 03/12/23 22:00 Breathing heparin Allergy Severe Decreased Verified 03/12/23 22:00 WBC count ciprofloxacin Allergy Unknown ? UNSURE Verified 03/12/23 22:04 OF SIDE EFFECT/LEG PAIN? lactose Allergy Unknown unknown Verified 03/12/23 22:00 nortriptyline Allergy Unknown hyperactivi Verified 03/12/23 22:00 ty blue dye AdvReac Severe TACHYCARDIA Verified 03/12/23 22:00 duloxetine AdvReac Severe TACHYCARDIA Verified 03/12/23 22:00 dextromethorphan AdvReac Intermediate GI SYMPTOMS Verified 03/12/23 22:02 famotidine AdvReac Intermediate afib and Verified 03/12/23 22:02 confusion guaifenesin AdvReac Intermediate GI SYMPTOMS Verified 03/12/23 22:02 pantoprazole AdvReac Intermediate leg pain Verified 03/12/23 22:02 ranitidine AdvReac Intermediate GI SYMPTOMS Verified 03/12/23 22:02 yellow dye AdvReac Intermediate GI SYMPTOMS Verified 03/12/23 22:02 Consultations 03/12/23 21:43 ED Decision to Admit Stat Ordered Studies 03/12/23 19:31 CT head/brain wo con Stat 03/12/23 22:45 CT Abd and Pelvis [CT abd pelvis wo con] Stat Hospital Course (1) Hyponatremia: (2) Acute confusion: (3) Hypokalemia: (4) Status post ablation of atrial fibrillation: (5) Irritable bowel syndrome: (6) Pacemaker: Plan Pt is a 83 yo female with a past medical history of a fib on eliquis, pacemaker, IBS, and HTN who presents to the hospital on 03/12/23 for confusion. Pt's daughter was contacted. She states she had brought her back last night due to abnormal fatigue/weakness and states that by the time she left her mother had looked good, but she did call her last night confused on why she was here. Discussion was had about keeping the pt overnight vs sending her home today since patient's electrolytes are improving and she is feeling well with appropr iate mentation. Daughter elected to take her back home. Daughter was informed that her fluid intake from now on should be between 60 and 80 ounces a day. Pt also given instructions on appropriate fluid intake of 60 to 80 ounces a day. Pt is to have [facility] Saturday. #Hyponatremia - Na 119 on admission, then 130, - Patient does report drinking large volumes of water when she went home - was given 1 L normal saline from ED, will hold any further IV fluids - Follow serial renal function panel and magnesium levels - Serum osmolality 258, urine osmol 135 - continue on fluid restriction 1200 mL daily #Hypokalemia - 3.2 this morning, repleted #Irritable bowel syndrome/gluten sensitive enteropathy/lactose intolerance - She has been trying to restrict lactose trying to restrict gluten. - She does complain of right upper quadrant pain on admission, but does have history of cholecystectomy - CT abd; Mild right hydronephrosis and hydroureter without evidence of an obstructing stone #Atrial fibrillation/hypertension/pacemaker status - Continue amlodipine and Eliquis Disposition: Home Total Time Total Time Spent Total Time Spent (In Minutes): <30 Discharge Plan Discharge Items Patient Disposition: Home - Self-Care Reason For Visit: CONFUSION, HYPONATREMIA Discharge Diagnosis: Hyponatremia Activity: Per Instructions section Non-emergency contact: Primary Care Provider Call non-emergency contact if: you have any medication questions and your symptoms worsen Follow-up/Referrals: Dalila Nelson DO [Primary Care Provider] - 03/14/23 1:45 pm Diet: Regular Ambulatory Orders: Basic Metabolic Panel (Routine) Timeframe: [id number] Location: Determined by Patient Ordered By: Estelle Woods Attending Provider Instructions: You were admitted for hyponatremia (low blood sodium). You were treated with fluid restriction. Your symptoms have improved, and we feel it is safe for you to return home. AT HOME HYDRATION: It will be important when you get home to balance being hydrated with not drinking an excessive amount of water. Ideally, your daily intake should be 60 to 80 ounces of water, making sure not to exceed 80 ounces. LABWORK: You are to get blood work this 03/15/23, so that your primary care provider can make sure your sodium and electrolytes are at the appropriate level. Medications: Your medication list has been reviewed and reconciled upon discharge to ensure accuracy and continuity of care. An updated list of all your medications is included with your hospital discharge paperwork. Please review this list closel y, and make note of any changes. If you have any issues filling these prescriptions, please call [phone] and ask to leave a message for Dr. Tijerina. Take your medications as instructed; do not skip a dose of your medicines. Make sure all of your doctors know every medicine you are taking (including [id number] medicines, vitamins, and supplements). Call your primary care provider before taking any new medicines (including over- the-counter medicines, vitamins, and supplements), because some of these may interact with your current medications, or may make your symptoms worse. Tell your primary care provider if you cannot afford your medications. Activity: You can do normal everyday activities as your body allows. Take rest breaks if you feel tired. Do not overexert. Stop activity if you have pain, shortness of breath or feel dizzy. Follow-up appointments: Make an appointment with your primary care physician within one week of discharge. A copy of this summary will be sent to them. Every time you see your primary care physician, or any other doctor, bring your medication list, a list of questions, and your recent weights. CONTACT YOUR PRIMARY CARE PROVIDER if you experience any of the following: Shortness of breath or difficulty breathing Swelling of your feet, ankles, hands or abdomen Feeling tired with normal activity or experiencing dizziness or fainting Difficulty following your treatment plan, or difficulty taking medications CALL 911 OR GO TO THE EMERGENCY DEPARTMENT if you experience any of the following: Severe abdominal pain or nausea/vomiting Severe chest pain, or chest pain that radiates (moves) to your jaw or arm Sudden, severe shortness of breath or difficulty breathing Thank you for allowing us to participate in your care. Pending Studies at Discharge: No Stand-Alone Forms: My [facility] Medications and DC Order Prescriptions: Continued latanoprost [Xalatan] 0.005 % drops 1 drp OPB HS Zyrtec 10 mg Capsule 10 mg PO HS Eliquis 2.5 mg tablet 2.5 mg PO BID cholecalciferol (vitamin D3) 1,000 unit Tablet 1,000 unit PO BID acetaminophen 500 mg Tablet 1,000 mg PO TID aloe vera Gel 1 applic TOPICAL UD PRN (Reason: neuropathy area) sodium chloride 0.9 % Solution 1 ml INTRANASAL Q30M PRN (Reason: dry nose) amlodipine 5 mg tablet 5 mg PO QPM melatonin 1 mg Tablet,Chewable 1 mg PO HS fluticasone propionate 50 mcg/actuation Flasher,Suspension 1 spray INTRANASAL DAILY Rx Instructions: administer into each nostril Discharge Orders: Discharge Order (Routine); Ordered 03/13/23 Ordered By: Estelle Whiting/Other Patient Handouts: Hyponatremia Dc Admission Data Admit Date/Time: 03/12/23 22:57 Attending Provider: Arnel Hinojosa Admit Provider: Basil Dhaliwal Primary Care Provider: Dalila Nelson Other Providers: Basil Dhaliwal Other Interventions: Discharge Summary Assessment (RN) Last Done: 03/13/23 13:14 Supervising Physician Co-Signing Physician Notes I personally examined the patient and verified all garduno points of history and exam, discussed case, and agree with decision making with Dr Tijerina feeling better and would like to go home. drank ~4L water yesterday. Dr Tijerina updated dtr vitals noted nad heent nc at mmm breathing unlabored no accessory muscles good effort skin no rashes no pallor or icterus recurrent hyponatremiathis time polydipsia mediated. Discussed safe ranges of fluids with patientprobably in the neighborhood of 60-80 ounces a day (she overdrink leading to readmission from metabolic encephalopathy from recurrent hyponatremia, but I wanted to make clear that we did not want to have her fluid restrict so as to end up readmitted yet again for dehydration or renal failure). She expressed a better understanding. Safe for homesodium rebounded quickly, but also she did not have time to equilibrate, and shows no [employer] sequelae. Safe/stable for homeresident physician discussed risks and benefits with daughter, basic metabolic panel by the end of the week. Off chlorthalidone indefinitely as well otherwise as above Resident Activity Tracking Resident Involvement: Resident Care Provided Care Provided: Adult Hospital Medicine
--- NOTE | 2023-03-13 15:43 | Electrocardiogram Report ---
Test Reason : Blood Pressure : / mmHG Vent. Rate : 065 BPM Atrial Rate : 068 BPM P-R Int : 000 ms QRS Dur : 156 ms QT Int : 462 ms P-R-T Axes : 000 -75 085 degrees QTc Int : 480 ms Ventricular-paced rhythm Abnormal ECG When compared with ECG of 10-MAR-2023 23:00, No significant change was found Confirmed by Tanmay Moncada ([id number]) on 03/13/2023 3:43:15 PM Referred By: REFERRED SELF Confirmed By:Tanmay Moncada
--- NOTE | 2023-03-13 18:55 | Billing Data ---
Date of Service March 13, 2023 Coding Level of Care Code 21911 IN/OBS DISCH 30 MIN/LESS
[2023-03-13] MEDS ORDERED: amLODIPine BESYLATE 5 MG TAB PO SCH (21:00)
[2023-03-13] MEDS ORDERED: CETIRIZINE HCL 10 MG TABLET PO SCH (21:00)
[2023-03-13] MEDS ORDERED: LATANOPROST 0.005% OP SOLN 2.5 ML BTL OPB SCH (21:00)
[2023-03-13] MEDS ORDERED: MELATONIN 3 MG TAB PO SCH (21:00)
== END 2023-03-13 13:39 | disposition home or self-care (01) | DRG 640 ==
LOC: ED 19:25 → SUATTDRO 22:57 → 2W 22:57